=== PATIENT | female | born 1970 | race Caucasian/White ===

== ENCOUNTER 2017-09-19 00:30 | Emergency (ER) | payer MEDICAID, OTHER ==
[2017-09-19] MEDS: SOD CHLORIDE 0.9% 1,000 ML IV (04:19)
[2017-09-19] MEDS: ACETAMINOPHEN 500 MG TAB PO (04:19)
[2017-09-19] MEDS: ONDANSETRON 4 MG INJ IV (04:19)
[2017-09-19] MEDS: morphine 4 MG/ML VIAL IV (04:19)
[2017-09-19 04:21] LABS: ADD MAN DIFF? NO
[2017-09-19 04:23] LABS: BASOPHILS % 0.2 % (0.0-2.0); EOSINOPHILS % 0.2 % (0.0-7.0); HEMATOCRIT 32.6 % (37.0-47.0); HEMOGLOBIN 11.2 g/dl (12.0-16.0); LYMPHOCYTES # 1.1 10^3/ul (0.8-2.9); LYMPHOCYTES % 6.1 % (15.0-51.0); MEAN CORPUSCULAR HEMOGLOBIN 29.2 pg (29.0-33.0); MEAN CORPUSCULAR HGB CONC 34.4 g/dl (32.0-37.0); MEAN CORPUSCULAR VOLUME 84.9 fl (82.0-101.0); MEAN PLATELET VOLUME 9.1 fl (7.4-10.4); MONOCYTE # 1.4 10^3/ul (0.3-0.9); MONOCYTES % 7.6 % (0.0-11.0); NEUTROPHIL # 15.3 10^3/ul (1.6-7.5); NEUTROPHILS % 85.2 % (39.0-77.0); PLATELET COUNT 224 10^3/UL (140-415); RED BLOOD COUNT 3.84 10^6/ul (4.20-5.40); RED CELL DISTRIBUTION WIDTH 12.9 % (11.5-14.5)
[2017-09-19 04:39] LABS: LACTIC ACID 1.4 mmol/L (0.5-2.0)
[2017-09-19 04:40] LABS: ALANINE AMINOTRANSFERASE 23 IU/L (13-69); ALBUMIN 3.7 g/dl (3.3-4.9); ALKALINE PHOSPHATASE 109 IU/L (42-121); ANION GAP 20 (8-16); ASPARTATE AMINO TRANSFERASE 23 IU/L (15-46); BLOOD UREA NITROGEN 14 mg/dl (7-20); CALCIUM 8.8 mg/dl (8.4-10.2); CARBON DIOXIDE 25 mmol/L (21-31); CHLORIDE 101 mmol/L (97-110); CREATININE 0.98 mg/dl (0.44-1.00); GLUCOSE 140 mg/dl (70-220); LIPASE 19 U/L (23-300); POTASSIUM 3.3 mmol/L (3.5-5.1); SODIUM 143 mmol/L (135-144); TOTAL PROTEIN 7.4 g/dl (6.1-8.1)
[2017-09-19 04:56] LABS: ADD UMIC YES; UR ASCORBIC ACID NEGATIVE (NEGATIVE); UR BACTERIA MANY /HPF (NONE SEEN); UR BILIRUBIN (Dip) NEGATIVE (NEGATIVE); UR BLOOD (Dip) 2+ mg/dL (NEGATIVE); UR CLARITY SLIGHTLY CLOUDY (CLEAR); UR COLOR YELLOW (YELLOW); UR GLUCOSE (Dip) NEGATIVE (NEGATIVE); UR KETONES (Dip) NEGATIVE (NEGATIVE); UR LEUKOCYTE ESTERASE (Dip) 1+ Leu/ul (NEGATIVE); UR MUCUS FEW /HPF (NONE SEEN); UR NITRITE (Dip) NEGATIVE (NEGATIVE); UR RBC 3 /HPF (0-5); UR SPECIFIC GRAVITY (Dip) 1.014 (1.003-1.030); UR TOTAL PROTEIN (Dip) 1+ mg/dl (NEGATIVE); UR UROBILINOGEN (Dip) 1+ mg/dL (NEGATIVE); UR WBC 16 /HPF (0-5)
[2017-09-19] MEDS: CIPROFLOXACIN 400MG/D5W 200 ML IVPB (05:40)
== END 2017-09-19 06:39 | disposition home or self-care (01) ==
LOC: FTE 00:30
DX: N10 Acute pyelonephritis (principal)
CPT/HCPCS: 36415; 74176; 80053; 81001; 83605; 83690; 84703; 85025; 87040; 87400; 96374; 96375; 99285-25

== ENCOUNTER 2017-09-22 21:17 | Inpatient (IN) | payer OTHER, MEDICAID ==
[2017-09-23] MEDS: IBUPROFEN LIQUID (PED) 20 MG/ML CUP PO (00:03)
[2017-09-23 01:01] LABS: ABNORMAL IP MESSAGE 1; HEMATOCRIT 30.8 % (37.0-47.0); HEMOGLOBIN 10.8 g/dl (12.0-16.0); MEAN CORPUSCULAR HGB CONC 35.1 g/dl (32.0-37.0); MEAN CORPUSCULAR VOLUME 82.8 fl (82.0-101.0); MEAN PLATELET VOLUME 8.8 fl (7.4-10.4); PLATELET COUNT 263 10^3/UL (140-415); RED BLOOD COUNT 3.72 10^6/ul (4.20-5.40); RED CELL DISTRIBUTION WIDTH 13.8 % (11.5-14.5)
[2017-09-23 01:01] LABS: WHITE BLOOD COUNT 27.3 10^3/ul (4.8-10.8)
[2017-09-23 01:05] LABS: POSITIVE DIFF @See below
[2017-09-23] MEDS: morphine 4 MG/ML VIAL IV (01:07)
[2017-09-23] MEDS: SODIUM CHLORIDE 0.9% 1L BAG IV* (01:07)
[2017-09-23 01:09] LABS: ADD MAN DIFF? YES
[2017-09-23] MEDS: ONDANSETRON 4 MG INJ IV (01:11)
[2017-09-23 01:17] LABS: ALANINE AMINOTRANSFERASE 54 IU/L (13-69); ALBUMIN 3.5 g/dl (3.3-4.9); ALKALINE PHOSPHATASE 326 IU/L (42-121); ANION GAP 20 (8-16); ASPARTATE AMINO TRANSFERASE 59 IU/L (15-46); BLOOD UREA NITROGEN 14 mg/dl (7-20); CALCIUM 8.8 mg/dl (8.4-10.2); CARBON DIOXIDE 26 mmol/L (21-31); CHLORIDE 97 mmol/L (97-110); CREATININE 0.97 mg/dl (0.44-1.00); GLUCOSE 109 mg/dl (70-220); SODIUM 140 mmol/L (135-144); TOTAL PROTEIN 7.3 g/dl (6.1-8.1)
[2017-09-23 01:18] LABS: ALBUMIN/GLOBULIN RATIO 0.92
[2017-09-23 01:22] LABS: URINE PH (Dip) POC 5.5 (5.0-8.5)
[2017-09-23 01:22] LABS: URINE BLOOD (Dip) POC 1+ (NEGATIVE); URINE GLUCOSE (Dip) POC Negative (NEGATIVE); URINE KETONES (Dip) POC Negative (NEGATIVE); URINE LEUKOCYTE EST (Dip) POC Negative (NEGATIVE); URINE NITRITE (Dip) POC Negative (NEGATIVE); URINE TOTAL PROTEIN POC 2+ (NEGATIVE)
[2017-09-23 01:24] LABS: POTASSIUM 2.6 mmol/L (3.5-5.1)
[2017-09-23 01:30] LABS: TROPONIN-I 0.102 ng/ml (0.00-0.12)
[2017-09-23 01:31] LABS: INR 1.33; PROTIME 16.7 Sec (11.9-14.9); PT RATIO 1.3
[2017-09-23 01:32] LABS: PARTIAL THROMBOPLASTIN TIME 33.6 Sec (25.0-35.0)
[2017-09-23] MEDS: IBUPROFEN 600 MG TAB PO (01:40)
[2017-09-23] MEDS: LEVOFLOXACIN 750MG/D5W (PMX) 150 ML IVPB (01:41)
[2017-09-23 01:45] LABS: LACTIC ACID 3.4 mmol/L (0.5-2.0)
[2017-09-23] MEDS ORDERED: VANCOMYCIN IV PER PHARMACY XX (02:00)
[2017-09-23] MEDS ORDERED: NACL 0.9% 3 ML SYG IV (02:00)
[2017-09-23 02:03] LABS: ADD UMIC YES; UR ASCORBIC ACID NEGATIVE (NEGATIVE); UR BACTERIA FEW /HPF (NONE SEEN); UR BILIRUBIN (Dip) NEGATIVE (NEGATIVE); UR BLOOD (Dip) 1+ mg/dL (NEGATIVE); UR CLARITY SLIGHTLY CLOUDY (CLEAR); UR COLOR YELLOW (YELLOW); UR GLUCOSE (Dip) NEGATIVE (NEGATIVE); UR KETONES (Dip) NEGATIVE (NEGATIVE); UR LEUKOCYTE ESTERASE (Dip) TRACE Leu/ul (NEGATIVE); UR NITRITE (Dip) NEGATIVE (NEGATIVE); UR RBC 2 /HPF (0-5); UR SPECIFIC GRAVITY (Dip) 1.014 (1.003-1.030); UR SQUAMOUS EPITHELIAL CELL FEW /HPF (FEW); UR TOTAL PROTEIN (Dip) 2+ mg/dl (NEGATIVE); UR UROBILINOGEN (Dip) 1+ mg/dL (NEGATIVE); UR WBC 11 /HPF (0-5)
[2017-09-23] MEDS: LORAZEPAM 2 MG INJ IV ×5 (02:23→20:43)
[2017-09-23] MEDS: morphine 2 MG INJ IV ×3 (02:24→14:05)
[2017-09-23] MEDS: POTASSIUM CHLORIDE 100 ML IVPB ×2 (02:36→04:29)
[2017-09-23] MEDS: SOD CHLORIDE 0.9% 1,000 ML IV ×3 (02:38→16:44)
[2017-09-23] MEDS: VANCOMYCIN 1 GM (PMX) 250 ML IVPB (02:39)
[2017-09-23 03:11] LABS: BAND NEUTROPHILS % (M) 22 % (0-4); GIANT THROMBO% (M) 1 % (0-0); LYMPHOCYTES #M 0.5 10^3/ul (0.8-2.9); LYMPHOCYTES % (M) 2 % (15-51); METAMYELOCYTES #M 0.5 10^3/ul (0.0-0.0); METAMYELOCYTES %M 2 % (0-0); MONOCYTE #M 0.5 10^3/ul (0.3-0.9); MONOCYTES % (M) 2 % (0-11); PLATELET ESTIMATE NORMAL; POIKILOCYTOSIS 2+ (0-0); PROMYELOCYTES #M 0.2 10^3/ul (0-0); PROMYELOCYTES % (M) 1 % (0-0); REACTIVE LYMPHOCYTES #M 0.2 10^3/ul (0.0-0.0); REACTIVE LYMPHOCYTES% (M) 1 % (0-0); SEG NEUT #M 20.7 10^3/ul (1.6-7.5); SEGMENTED NEUTROPHILS (M) % 70 % (39-77); SMUDGE%M 2 % (0-0)
[2017-09-23 03:21] LABS: LACTIC ACID 3.7 mmol/L (0.5-2.0)
[2017-09-23] MEDS: NICOTINE (14 MG/24 HR) PATCH TRANSDERM (04:08)
[2017-09-23] MEDS: NICOTINE POLACRILEX 2 MG GUM BUCCAL ×2 (04:26→08:55)
[2017-09-23 05:58] LABS: ABNORMAL IP MESSAGE 1; HEMATOCRIT 28.9 % (37.0-47.0); HEMOGLOBIN 10.2 g/dl (12.0-16.0); MEAN CORPUSCULAR HGB CONC 35.3 g/dl (32.0-37.0); MEAN CORPUSCULAR VOLUME 82.1 fl (82.0-101.0); MEAN PLATELET VOLUME 8.9 fl (7.4-10.4); PLATELET COUNT 236 10^3/UL (140-415); RED BLOOD COUNT 3.52 10^6/ul (4.20-5.40); RED CELL DISTRIBUTION WIDTH 13.9 % (11.5-14.5)
[2017-09-23 05:58] LABS: WHITE BLOOD COUNT 25.5 10^3/ul (4.8-10.8)
[2017-09-23 06:24] LABS: POSITIVE DIFF @See below
[2017-09-23 06:25] LABS: ADD MAN DIFF? YES; CHOL/HDL RATIO 7.8 RATIO; HDL CHOLESTEROL 11 mg/dl (34-88); LDL CHOLESTEROL,CALCULATED 52 mg/dl; TRIGLYCERIDES 113 mg/dl (0-149)
[2017-09-23 06:25] LABS: CHOLESTEROL 86 mg/dl (100-200)
[2017-09-23 06:29] LABS: ALANINE AMINOTRANSFERASE 45 IU/L (13-69); ALBUMIN 2.7 g/dl (3.3-4.9); ALBUMIN/GLOBULIN RATIO 0.87; ALKALINE PHOSPHATASE 246 IU/L (42-121); ANION GAP 21 (8-16); ASPARTATE AMINO TRANSFERASE 46 IU/L (15-46); BLOOD UREA NITROGEN 14 mg/dl (7-20); CALCIUM 7.8 mg/dl (8.4-10.2); CARBON DIOXIDE 22 mmol/L (21-31); CHLORIDE 103 mmol/L (97-110); GLUCOSE 127 mg/dl (70-220); SODIUM 143 mmol/L (135-144); TOTAL PROTEIN 5.8 g/dl (6.1-8.1)
[2017-09-23 06:41] LABS: POTASSIUM 2.8 mmol/L (3.5-5.1)
[2017-09-23 06:41] LABS: LACTIC ACID 3.8 mmol/L (0.5-2.0)
[2017-09-23 06:57] LABS: THYROID STIMULATING HORMONE 0.467 MIU/L (0.465-4.680)
[2017-09-23] MEDS: POTASSIUM CHLORIDE (SR) 20 MEQ TAB PO ×2 (07:12→08:49)
[2017-09-23] MEDS: SOD CHLORIDE 0.9% 100 ML (08:43)
[2017-09-23] MEDS: IOHEXOL 300MG/ML 150 ML BTL (08:44)
[2017-09-23] MEDS: HYDROmorphONE 0.5 MG/0.5 ML SYG IV ×2 (08:49→09:06)
[2017-09-23 09:20] LABS: BAND NEUTROPHILS #M 10.4 10^3/ul (0.0-0.6); BAND NEUTROPHILS % (M) 41 % (0-4); LYMPHOCYTES % (M) 4 % (15-51); MONOCYTE #M 0.7 10^3/ul (0.3-0.9); MONOCYTES % (M) 3 % (0-11); PLATELET ESTIMATE NORMAL; POIKILOCYTOSIS 2+ (0-0); POLYCHROMASIA 3+ (0-0); SEG NEUT #M 15.9 10^3/ul (1.6-7.5); SEGMENTED NEUTROPHILS (M) % 52 % (39-77); SMUDGE%M 6 % (0-0)
[2017-09-23 10:47] LABS: AMPHETAMINE/METHAMPHETAMINE Positive (NEGATIVE)
[2017-09-23 10:48] LABS: BARBITURATES Negative (NEGATIVE); BENZODIAZEPINES Negative (NEGATIVE); CANNABINOIDS Negative (NEGATIVE); COCAINE Negative (NEGATIVE); OPIATES Positive (NEGATIVE)
[2017-09-23 10:48] LABS: LACTIC ACID 3.7 mmol/L (0.5-2.0)
[2017-09-23] MEDS ORDERED: HALOPERIDOL 5 MG INJ (12:04)
[2017-09-23] MEDS: VANCOMYCIN 500MG/NS (PMX) 100 ML IVPB ×2 (12:06→21:01)
[2017-09-23] MEDS: HALOPERIDOL 5 MG INJ IM ×2 (12:17→23:17)
[2017-09-23 13:31] LABS: LACTIC ACID 2.9 mmol/L (0.5-2.0)
[2017-09-23] MEDS ORDERED: VANCOMYCIN 500MG/NS (PMX) 100 ML IVPB (14:00)
[2017-09-23 23:37] LABS: HIV 1&2 ANTIBODY NEGATIVE (NEGATIVE)
[2017-09-24] MEDS: SOD CHLORIDE 0.9% 1,000 ML IV ×3 (01:41→16:30)
[2017-09-24] MEDS: LORAZEPAM 2 MG INJ IV ×7 (01:42→23:13)
[2017-09-24] MEDS ORDERED: LEVOFLOXACIN 750MG/D5W (PMX) 150 ML IVPB (02:00)
[2017-09-24] MEDS: VANCOMYCIN 500MG/NS (PMX) 100 ML IVPB (04:22)
[2017-09-24 08:59] LABS: ABNORMAL IP MESSAGE 1; HEMATOCRIT 23.2 % (37.0-47.0); HEMOGLOBIN 8.4 g/dl (12.0-16.0); MEAN CORPUSCULAR HEMOGLOBIN 29.2 pg (29.0-33.0); MEAN CORPUSCULAR HGB CONC 36.2 g/dl (32.0-37.0); MEAN CORPUSCULAR VOLUME 80.6 fl (82.0-101.0); MEAN PLATELET VOLUME 9.2 fl (7.4-10.4); PLATELET COUNT 239 10^3/UL (140-415); RED BLOOD COUNT 2.88 10^6/ul (4.20-5.40); RED CELL DISTRIBUTION WIDTH 14.1 % (11.5-14.5)
[2017-09-24 08:59] LABS: WHITE BLOOD COUNT 41.3 10^3/ul (4.8-10.8)
[2017-09-24] MEDS: RIFAMPIN 300 MG CAP PO (09:00)
[2017-09-24 09:06] LABS: ADD MAN DIFF? YES; POSITIVE DIFF @See below
[2017-09-24 09:21] LABS: ANION GAP 20 (8-16); BLOOD UREA NITROGEN 24 mg/dl (7-20); CALCIUM 8.1 mg/dl (8.4-10.2); CARBON DIOXIDE 20 mmol/L (21-31); CHLORIDE 110 mmol/L (97-110); CREATININE 0.86 mg/dl (0.44-1.00); GLUCOSE 89 mg/dl (70-220); MAGNESIUM 2.5 mg/dl (1.7-2.5); SODIUM 147 mmol/L (135-144)
[2017-09-24 09:24] LABS: POTASSIUM 2.7 mmol/L (3.5-5.1)
[2017-09-24 10:02] LABS: HEPATITIS B CORE ANTIBODY REACTIVE (NEGATIVE)
[2017-09-24 10:02] LABS: HEPATITIS B SURFACE ANTIBODY NEGATIVE (NEGATIVE)
[2017-09-24 10:05] LABS: HEPATITIS C VIRAL ANTIBODY REACTIVE (NEGATIVE)
[2017-09-24 10:06] LABS: HEPATITIS B SURFACE ANTIGEN POSITIVE (NEGATIVE)
[2017-09-24 10:21] LABS: BAND NEUTROPHILS #M 8.6 10^3/ul (0.0-0.6); BAND NEUTROPHILS % (M) 21 % (0-4); BURR CELLS 2+ (0-0); LYMPHOCYTES #M 1.2 10^3/ul (0.8-2.9); LYMPHOCYTES % (M) 3 % (15-51); MONOCYTE #M 0.4 10^3/ul (0.3-0.9); MONOCYTES % (M) 1 % (0-11); PLATELET ESTIMATE NORMAL; POIKILOCYTOSIS 1+ (0-0); POLYCHROMASIA 2+ (0-0); REACTIVE LYMPHOCYTES #M 0.4 10^3/ul (0.0-0.0); REACTIVE LYMPHOCYTES% (M) 1 % (0-0); SEG NEUT #M 34.1 10^3/ul (1.6-7.5); SEGMENTED NEUTROPHILS (M) % 74 % (39-77); SMUDGE%M 1 % (0-0); TARGET CELLS 1+ (0-0)
[2017-09-24 11:12] LABS: ERYTHROCYTE SEDIMENTATION RATE 102 mm/Hr (0-20)
[2017-09-24] MEDS: VANCOMYCIN 750 MG in DEXTROSE 5% 150 ML IVPB ×2 (11:33→23:28)
[2017-09-24] MEDS: NICOTINE (14 MG/24 HR) PATCH TRANSDERM (11:41)
[2017-09-24] MEDS: POTASSIUM CHLORIDE 100 ML IVPB ×4 (13:56→21:08)
[2017-09-24] MEDS: ACETAMINOPHEN 650 MG SUPP PR (18:12)
[2017-09-24] MEDS: HALOPERIDOL 5 MG INJ IM (23:13)
[2017-09-25] MEDS: METOPROLOL 5 MG INJ IV (00:45)
[2017-09-25] MEDS: SOD CHLORIDE 0.9% 1,000 ML IV ×6 (01:59→22:26)
[2017-09-25] MEDS: LORAZEPAM 2 MG INJ IV (04:24)
[2017-09-25] MEDS: AZTREONAM IVPB (05:01)
[2017-09-25] MEDS: SOD CHLORIDE 0.9% IVPB (05:01)
[2017-09-25] MEDS: DILTIAZEM 25 MG INJ IV ×2 (05:04→06:34)
[2017-09-25] MEDS: VANCOMYCIN 750 MG in DEXTROSE 5% 150 ML IVPB ×4 (05:04→22:26)
[2017-09-25] MEDS: SOD CHLORIDE 0.9% 500 ML IV (05:09)
[2017-09-25 05:20] LABS: AADO2 Arterial 125.3 mmHg (7.0-24.0); Allen Test ACCEPTAB; Arterial Base Excess -7.7 mmol/L (-3.0-3); Arterial Blood Gas Oxygen Sat 87.3 mmHG (95.0-98.0); Arterial COHb 0.3 % (0.0-3.0); Arterial HCO3 13.7 mmol/L (22.0-26.0); Arterial MetHb 0 % (0.0-1.5); Arterial Total Hemglobin 10.3 g/dl (12.0-18.0); Arterial pCO2 18.2 mmhg (35-45); MODE NASAL CANNULA; Site Right Radial
[2017-09-25] MEDS: ETOMIDATE 20 MG INJ IV (06:15)
[2017-09-25] MEDS: ROCURONIUM BROMIDE 10 MG/ML VIAL IV (06:17)
[2017-09-25] MEDS ORDERED: DILTIAZEM 25 MG INJ IV (06:30)
[2017-09-25] MEDS: MIDAZOLAM (DRIP) 50 mg/50 mL 50 ML IV (06:35)
[2017-09-25] MEDS ORDERED: ETOMIDATE 20 MG INJ (07:00)
[2017-09-25] MEDS ORDERED: ROCURONIUM 50 MG INJ (07:00)
[2017-09-25 07:55] LABS: WHITE BLOOD COUNT 21.6 10^3/ul (4.8-10.8)
[2017-09-25 07:55] LABS: HEMATOCRIT 27.2 % (37.0-47.0); HEMOGLOBIN 9.1 g/dl (12.0-16.0); MEAN CORPUSCULAR HEMOGLOBIN 28.6 pg (29.0-33.0); MEAN CORPUSCULAR HGB CONC 33.5 g/dl (32.0-37.0); MEAN CORPUSCULAR VOLUME 85.5 fl (82.0-101.0); MEAN PLATELET VOLUME 9.3 fl (7.4-10.4); PLATELET COUNT 165 10^3/UL (140-415); RED BLOOD COUNT 3.18 10^6/ul (4.20-5.40); RED CELL DISTRIBUTION WIDTH 15.1 % (11.5-14.5)
[2017-09-25 08:03] LABS: ADD MAN DIFF? YES; POSITIVE DIFF @See below
[2017-09-25 08:11] LABS: AADO2 Arterial 408.2 mmHg (7.0-24.0); Allen Test ACCEPTAB; Arterial Base Excess -6.8 mmol/L (-3.0-3); Arterial Blood Gas Oxygen Sat 98.7 mmHG (95.0-98.0); Arterial COHb 0.3 % (0.0-3.0); Arterial MetHb 0.4 % (0.0-1.5); Arterial Total Hemglobin 9.5 g/dl (12.0-18.0); Arterial pCO2 62.6 mmhg (35-45); MODE VENT - AC; Site Right Radial
[2017-09-25 08:15] LABS: MAGNESIUM 2.5 mg/dl (1.7-2.5)
[2017-09-25 08:17] LABS: ALANINE AMINOTRANSFERASE 46 IU/L (13-69); ALBUMIN 2.5 g/dl (3.3-4.9); ALBUMIN/GLOBULIN RATIO 0.75; ALKALINE PHOSPHATASE 223 IU/L (42-121); ANION GAP 23 (8-16); ASPARTATE AMINO TRANSFERASE 77 IU/L (15-46); BILIRUBIN,INDIRECT 0.5 mg/dl (0-1.1); BILIRUBIN,TOTAL 0.7 mg/dl (0.2-1.3); BLOOD UREA NITROGEN 37 mg/dl (7-20); CALCIUM 7.5 mg/dl (8.4-10.2); CARBON DIOXIDE 17 mmol/L (21-31); CHLORIDE 118 mmol/L (97-110); CREATININE 0.99 mg/dl (0.44-1.00); GLUCOSE 104 mg/dl (70-220); POTASSIUM 3.7 mmol/L (3.5-5.1); SODIUM 154 mmol/L (135-144); TOTAL PROTEIN 5.8 g/dl (6.1-8.1)
[2017-09-25 08:28] LABS: GAMMA GLUTAMYL TRANSPEPTIDASE 66 IU/L (0-50)
[2017-09-25] MEDS: RIFAMPIN 300 MG CAP PO (08:29)
[2017-09-25] MEDS ORDERED: AZTREONAM 2 GM in SOD CHLORIDE 0.9% 100 ML IVPB (09:00)
[2017-09-25 09:46] LABS: ANISOCYTOSIS 1+ (0-0); BAND NEUTROPHILS #M 1.9 10^3/ul (0.0-0.6); BAND NEUTROPHILS % (M) 9 % (0-4); GIANT THROMBO% (M) 1 % (0-0); LYMPHOCYTES #M 1.2 10^3/ul (0.8-2.9); LYMPHOCYTES % (M) 6 % (15-51); MONOCYTE #M 0.4 10^3/ul (0.3-0.9); MONOCYTES % (M) 2 % (0-11); MYELOCYTES #M 0.2 10^3/ul (0.0-0.0); MYELOCYTES % (M) 1 % (0-0); PLATELET ESTIMATE NORMAL; POIKILOCYTOSIS 3+ (0-0); PROMYELOCYTES #M 0.2 10^3/ul (0-0); PROMYELOCYTES % (M) 1 % (0-0); REACTIVE LYMPHOCYTES #M 0.2 10^3/ul (0.0-0.0); REACTIVE LYMPHOCYTES% (M) 1 % (0-0); SEG NEUT #M 17.7 10^3/ul (1.6-7.5); SEGMENTED NEUTROPHILS (M) % 80 % (39-77); SMUDGE%M 2 % (0-0)
[2017-09-25] MEDS ORDERED: PROPOFOL 100 ML (10:45)
[2017-09-25] MEDS: PROPOFOL 100 ML IV ×2 (10:53→17:37)
[2017-09-25] MEDS ORDERED: NORepinephrine 8MG/250 ML (PMX 250 ML IV (11:00)
[2017-09-25 11:15] LABS: AMMONIA 46 umol/l (9-30)
[2017-09-25] MEDS: RIFAMPIN 300 MG CAP NGT (11:53)
[2017-09-25] MEDS: MEROPENEM 1 GM/50ML(PMX) 50 ML IVPB ×3 (11:53→22:27)
[2017-09-25 12:13] LABS: AADO2 Arterial 138.8 mmHg (7.0-24.0); Allen Test ACCEPTAB; Arterial Base Excess -6.2 mmol/L (-3.0-3); Arterial Blood Gas Oxygen Sat 98.4 mmHG (95.0-98.0); Arterial COHb 0.2 % (0.0-3.0); Arterial HCO3 17.2 mmol/L (22.0-26.0); Arterial MetHb 0.2 % (0.0-1.5); Arterial Total Hemglobin 9.5 g/dl (12.0-18.0); Arterial pCO2 26.8 mmhg (35-45); MODE VENT - AC; Site Right Radial
[2017-09-25] MEDS: morphine 2 MG INJ IV (13:22)
[2017-09-25] MEDS: NICOTINE (14 MG/24 HR) PATCH TRANSDERM (13:22)
[2017-09-25 14:24] LABS: HEPATITIS B SURFACE ANTIGEN REACTIVE (NON-REACTIVE)
[2017-09-25] MEDS: LIDOCAINE 1% (MPF) 5 ML VIAL SC (14:30)
[2017-09-25] MEDS: SOD CHLORIDE 0.9% 100 ML ×2 (15:05→17:37)
[2017-09-25] MEDS: IOHEXOL 100 ML (16:12)
[2017-09-25] MEDS: FENTAnyl (DRIP) 1000 mcg/100mL 100 ML IV (17:39)
[2017-09-25 21:39] LABS: RAPID PLASMA REAGIN NONREACTIVE (NR)
[2017-09-26] MEDS: PROPOFOL 100 ML IV ×4 (01:10→22:26)
[2017-09-26 05:45] LABS: HEMATOCRIT 26.1 % (37.0-47.0); HEMOGLOBIN 9.1 g/dl (12.0-16.0); MEAN CORPUSCULAR HEMOGLOBIN 28.7 pg (29.0-33.0); MEAN CORPUSCULAR HGB CONC 34.9 g/dl (32.0-37.0); MEAN CORPUSCULAR VOLUME 82.3 fl (82.0-101.0); MEAN PLATELET VOLUME 9.3 fl (7.4-10.4); PLATELET COUNT 163 10^3/UL (140-415); RED BLOOD COUNT 3.17 10^6/ul (4.20-5.40)
[2017-09-26 05:45] LABS: WHITE BLOOD COUNT 22.9 10^3/ul (4.8-10.8)
[2017-09-26 05:58] LABS: ADD MAN DIFF? YES; POSITIVE DIFF @See below
[2017-09-26] MEDS: VANCOMYCIN 750 MG in DEXTROSE 5% 150 ML IVPB (05:59)
[2017-09-26] MEDS: MEROPENEM 1 GM/50ML(PMX) 50 ML IVPB ×3 (05:59→22:26)
[2017-09-26 06:30] LABS: ALANINE AMINOTRANSFERASE 44 IU/L (13-69); ALBUMIN 2.4 g/dl (3.3-4.9); ALKALINE PHOSPHATASE 216 IU/L (42-121); ANION GAP 15 (8-16); ASPARTATE AMINO TRANSFERASE 65 IU/L (15-46); BILIRUBIN,INDIRECT 0.6 mg/dl (0-1.1); BILIRUBIN,TOTAL 1.1 mg/dl (0.2-1.3); BLOOD UREA NITROGEN 23 mg/dl (7-20); CALCIUM 7.4 mg/dl (8.4-10.2); CARBON DIOXIDE 21 mmol/L (21-31); CHLORIDE 118 mmol/L (97-110); CREATININE 0.75 mg/dl (0.44-1.00); GLUCOSE 92 mg/dl (70-220); POTASSIUM 3.1 mmol/L (3.5-5.1); SODIUM 151 mmol/L (135-144); TOTAL PROTEIN 5.8 g/dl (6.1-8.1)
[2017-09-26] MEDS: FENTAnyl (DRIP) 1000 mcg/100mL 100 ML IV ×2 (07:08→16:00)
[2017-09-26] MEDS: DEXTROSE 5% 1,000 ML IV ×2 (07:48→22:26)
[2017-09-26 08:38] LABS: AADO2 Arterial 106.9 mmHg (7.0-24.0); Allen Test ACCEPTAB; Arterial Base Excess -1.6 mmol/L (-3.0-3); Arterial Blood Gas Oxygen Sat 97.8 mmHG (95.0-98.0); Arterial COHb 0.2 % (0.0-3.0); Arterial Fraction of Oxyhgb 97.5 % (93.0-99.0); Arterial HCO3 20.5 mmol/L (22.0-26.0); Arterial MetHb 0.1 % (0.0-1.5); Arterial Total Hemglobin 10.1 g/dl (12.0-18.0); Arterial pCO2 26.1 mmhg (35-45); MODE VENT - AC; Site Right Radial
[2017-09-26] MEDS: RIFAMPIN 300 MG CAP NGT (08:43)
[2017-09-26] MEDS: NICOTINE (14 MG/24 HR) PATCH TRANSDERM (08:43)
[2017-09-26] MEDS: POTASSIUM CHLORIDE 50 ML IVPB ×3 (08:43→15:35)
[2017-09-26] MEDS: ACETAMINOPHEN 325 MG TAB PO ×2 (08:44→18:41)
[2017-09-26 09:33] LABS: ANISOCYTOSIS 1+ (0-0); BAND NEUTROPHILS #M 1.6 10^3/ul (0.0-0.6); BAND NEUTROPHILS % (M) 7 % (0-4); GIANT THROMBO% (M) 2 % (0-0); HYPOCHROMASIA 1+ (0-0); LYMPHOCYTES #M 1.6 10^3/ul (0.8-2.9); LYMPHOCYTES % (M) 7 % (15-51); MONOCYTE #M 0.9 10^3/ul (0.3-0.9); MONOCYTES % (M) 4 % (0-11); PLATELET ESTIMATE NORMAL; POIKILOCYTOSIS 1+ (0-0); POLYCHROMASIA 3+ (0-0); SEG NEUT #M 19.1 10^3/ul (1.6-7.5); SEGMENTED NEUTROPHILS (M) % 82 % (39-77)
[2017-09-26] MEDS ORDERED: LORAZEPAM 2 MG INJ (10:23)
[2017-09-26] MEDS: LORAZEPAM 2 MG INJ IV ×3 (11:04→16:34)
[2017-09-26] MEDS: PANTOPRAZOLE 40 MG INJ IV (11:04)
[2017-09-26] MEDS: ENOXAPARIN 40 MG/0.4 ML SYG SC (11:08)
[2017-09-26] MEDS: VANCOMYCIN 1 GM 250 ML IVPB ×2 (13:27→22:26)
[2017-09-26 13:56] LABS: ANION GAP 12 (8-16); BLOOD UREA NITROGEN 22 mg/dl (7-20); CALCIUM 7.1 mg/dl (8.4-10.2); CARBON DIOXIDE 24 mmol/L (21-31); CHLORIDE 116 mmol/L (97-110); CREATININE 0.74 mg/dl (0.44-1.00); GLUCOSE 101 mg/dl (70-220); MAGNESIUM 2.4 mg/dl (1.7-2.5); PHOSPHORUS 2.4 mg/dl (2.5-4.9); POTASSIUM 3.4 mmol/L (3.5-5.1); SODIUM 149 mmol/L (135-144)
[2017-09-27] MEDS: ACETAMINOPHEN 325 MG TAB PO ×2 (03:16→20:30)
[2017-09-27] MEDS: FENTAnyl (DRIP) 1000 mcg/100mL 100 ML IV ×3 (03:19→17:21)
[2017-09-27 05:44] LABS: ADD MAN DIFF? NO
[2017-09-27 05:54] LABS: WHITE BLOOD COUNT 22.7 10^3/ul (4.8-10.8)
[2017-09-27 05:54] LABS: BASOPHILS % 0.2 % (0.0-2.0); EOSINOPHILS # 0.1 10^3/ul (0.0-0.5); EOSINOPHILS % 0.2 % (0.0-7.0); HEMATOCRIT 24.9 % (37.0-47.0); HEMOGLOBIN 8.6 g/dl (12.0-16.0); LYMPHOCYTES # 2.1 10^3/ul (0.8-2.9); MEAN CORPUSCULAR HGB CONC 34.5 g/dl (32.0-37.0); MEAN CORPUSCULAR VOLUME 83.8 fl (82.0-101.0); MEAN PLATELET VOLUME 10.8 fl (7.4-10.4); MONOCYTE # 0.8 10^3/ul (0.3-0.9); MONOCYTES % 3.6 % (0.0-11.0); NEUTROPHIL # 18.8 10^3/ul (1.6-7.5); NEUTROPHILS % 82.9 % (39.0-77.0); PLATELET COUNT 140 10^3/UL (140-415); RED BLOOD COUNT 2.97 10^6/ul (4.20-5.40); RED CELL DISTRIBUTION WIDTH 15.4 % (11.5-14.5)
[2017-09-27 06:05] LABS: ALANINE AMINOTRANSFERASE 76 IU/L (13-69); ALBUMIN 2.1 g/dl (3.3-4.9); ALBUMIN/GLOBULIN RATIO 0.56; ALKALINE PHOSPHATASE 245 IU/L (42-121); ANION GAP 10 (8-16); ASPARTATE AMINO TRANSFERASE 133 IU/L (15-46); BILIRUBIN,INDIRECT 0.8 mg/dl (0-1.1); BILIRUBIN,TOTAL 0.8 mg/dl (0.2-1.3); BLOOD UREA NITROGEN 19 mg/dl (7-20); CARBON DIOXIDE 23 mmol/L (21-31); CHLORIDE 116 mmol/L (97-110); CREATININE 0.67 mg/dl (0.44-1.00); GLUCOSE 127 mg/dl (70-220); MAGNESIUM 2.2 mg/dl (1.7-2.5); PHOSPHORUS 2.8 mg/dl (2.5-4.9); POTASSIUM 3.4 mmol/L (3.5-5.1); SODIUM 146 mmol/L (135-144); TOTAL PROTEIN 5.8 g/dl (6.1-8.1)
[2017-09-27] MEDS: PANTOPRAZOLE 40 MG INJ IV (06:26)
[2017-09-27] MEDS: MEROPENEM 1 GM/50ML(PMX) 50 ML IVPB ×3 (06:26→22:30)
[2017-09-27] MEDS: PROPOFOL 100 ML IV ×2 (06:26→23:47)
[2017-09-27] MEDS: VANCOMYCIN 1 GM 250 ML IVPB ×2 (06:26→14:16)
[2017-09-27] MEDS: NICOTINE (14 MG/24 HR) PATCH TRANSDERM (08:29)
[2017-09-27] MEDS: RIFAMPIN 300 MG CAP NGT (08:30)
[2017-09-27 08:36] LABS: Allen Test ACCEPTAB; Arterial Base Excess -1.1 mmol/L (-3.0-3); Arterial Blood Gas Oxygen Sat 97.9 mmHG (95.0-98.0); Arterial COHb 0.3 % (0.0-3.0); Arterial Fraction of Oxyhgb 97.6 % (93.0-99.0); Arterial HCO3 21.8 mmol/L (22.0-26.0); Arterial MetHb 0 % (0.0-1.5); Arterial pCO2 29.9 mmhg (35-45); MODE VENT - AC; Site Right Radial
[2017-09-27] MEDS: ENOXAPARIN 40 MG/0.4 ML SYG SC (08:46)
[2017-09-27] MEDS ORDERED: MAGNESIUM SULFATE 2 GM/50 ML 50 ML IVPB (09:00)
[2017-09-27] MEDS ORDERED: MAGNESIUM SULFATE 4 GM/100 ML 100 ML IVPB (09:00)
[2017-09-27] MEDS ORDERED: MAGNESIUM SULFATE 1 GM/D5W 100 ML IVPB (09:00)
[2017-09-27] MEDS: DAPTOMYCIN 320 MG in SOD CHLORIDE 0.9% 100 ML IVPB (09:31)
[2017-09-27] MEDS: POTASSIUM CHLORIDE 100 ML IVPB (09:37)
[2017-09-27] MEDS: DEXTROSE 5% 1,000 ML IV ×2 (13:10→20:30)
[2017-09-27 14:05] LABS: VANCOMYCIN,TROUGH 14.3 ug/ml (10.0-20.0)
[2017-09-27] MEDS: POTASSIUM CHLORIDE 50 ML IVPB (18:35)
[2017-09-27] MEDS: IBUPROFEN 600 MG TAB GTB (23:47)
[2017-09-27] MEDS: SOD CHLORIDE 0.9% IVPB (23:47)
[2017-09-27] MEDS: VANCOMYCIN IVPB (23:47)
[2017-09-28] MEDS: SOD CHLORIDE 0.9% 1,000 ML IV ×2 (00:45→06:03)
[2017-09-28] MEDS: FENTAnyl (DRIP) 1000 mcg/100mL 100 ML IV ×3 (02:30→21:30)
[2017-09-28] MEDS: ALBUMIN HUMAN 5% 250 ML IV (04:26)
[2017-09-28 05:08] LABS: ADD MAN DIFF? NO
[2017-09-28 05:09] LABS: BASOPHILS % 0.2 % (0.0-2.0); EOSINOPHILS # 0.2 10^3/ul (0.0-0.5); EOSINOPHILS % 1.2 % (0.0-7.0); HEMATOCRIT 21.7 % (37.0-47.0); HEMOGLOBIN 7.1 g/dl (12.0-16.0); LYMPHOCYTES # 2.4 10^3/ul (0.8-2.9); LYMPHOCYTES % 13.6 % (15.0-51.0); MEAN CORPUSCULAR HEMOGLOBIN 28.2 pg (29.0-33.0); MEAN CORPUSCULAR HGB CONC 32.7 g/dl (32.0-37.0); MEAN CORPUSCULAR VOLUME 86.1 fl (82.0-101.0); MONOCYTE # 0.6 10^3/ul (0.3-0.9); MONOCYTES % 3.2 % (0.0-11.0); NEUTROPHIL # 13.8 10^3/ul (1.6-7.5); NEUTROPHILS % 77.2 % (39.0-77.0); PLATELET COUNT 147 10^3/UL (140-415); RED BLOOD COUNT 2.52 10^6/ul (4.20-5.40); RED CELL DISTRIBUTION WIDTH 15.6 % (11.5-14.5)
[2017-09-28 05:09] LABS: WHITE BLOOD COUNT 17.9 10^3/ul (4.8-10.8)
[2017-09-28 05:31] LABS: CREATINE KINASE 127 IU/L (23-200)
[2017-09-28 05:45] LABS: ALANINE AMINOTRANSFERASE 47 IU/L (13-69); ALBUMIN 1.8 g/dl (3.3-4.9); ALBUMIN/GLOBULIN RATIO 0.48; ALKALINE PHOSPHATASE 159 IU/L (42-121); ANION GAP 8 (8-16); ASPARTATE AMINO TRANSFERASE 39 IU/L (15-46); BILIRUBIN,INDIRECT 0.2 mg/dl (0-1.1); BILIRUBIN,TOTAL 0.2 mg/dl (0.2-1.3); BLOOD UREA NITROGEN 15 mg/dl (7-20); CALCIUM 6.5 mg/dl (8.4-10.2); CARBON DIOXIDE 25 mmol/L (21-31); CHLORIDE 113 mmol/L (97-110); GLUCOSE 117 mg/dl (70-220); POTASSIUM 3.4 mmol/L (3.5-5.1); SODIUM 143 mmol/L (135-144); TOTAL PROTEIN 5.5 g/dl (6.1-8.1)
[2017-09-28] MEDS: MEROPENEM 1 GM/50ML(PMX) 50 ML IVPB (06:02)
[2017-09-28] MEDS: SOD CHLORIDE 0.9% IVPB ×3 (06:02→21:27)
[2017-09-28] MEDS: VANCOMYCIN IVPB ×3 (06:02→21:27)
[2017-09-28] MEDS: PROPOFOL 100 ML IV ×4 (06:02→21:28)
[2017-09-28] MEDS: PANTOPRAZOLE 40 MG INJ IV (06:12)
[2017-09-28] MEDS: DAPTOMYCIN 320 MG in SOD CHLORIDE 0.9% 100 ML IVPB (08:31)
[2017-09-28] MEDS: RIFAMPIN 300 MG CAP NGT (08:31)
[2017-09-28] MEDS: IBUPROFEN 600 MG TAB GTB ×2 (08:32→16:22)
[2017-09-28] MEDS: NICOTINE (14 MG/24 HR) PATCH TRANSDERM (08:32)
[2017-09-28] MEDS: ENOXAPARIN 40 MG/0.4 ML SYG SC (08:50)
[2017-09-28 10:14] LABS: POSITIVE DIFF @See below
[2017-09-28] MEDS: POTASSIUM CHLORIDE 20 MEQ /SW 100 ML IVPB (10:52)
[2017-09-28 11:02] LABS: WHITE BLOOD COUNT 18.1 10^3/ul (4.8-10.8)
[2017-09-28 11:02] LABS: HEMATOCRIT 21.4 % (37.0-47.0); HEMOGLOBIN 7.2 g/dl (12.0-16.0); MEAN CORPUSCULAR HEMOGLOBIN 28.9 pg (29.0-33.0); MEAN CORPUSCULAR HGB CONC 33.6 g/dl (32.0-37.0); MEAN CORPUSCULAR VOLUME 85.9 fl (82.0-101.0); MEAN PLATELET VOLUME 10.9 fl (7.4-10.4); PLATELET COUNT 169 10^3/UL (140-415); RED BLOOD COUNT 2.49 10^6/ul (4.20-5.40); RED CELL DISTRIBUTION WIDTH 15.7 % (11.5-14.5)
[2017-09-28 11:03] LABS: ADD MAN DIFF? YES; NUCLEATED RED BLOOD CELLS% 0.1 /100WBC (0.0-0.0)
[2017-09-28 12:10] LABS: ANISOCYTOSIS 1+ (0-0); BAND NEUTROPHILS #M 0.3 10^3/ul (0.0-0.6); BAND NEUTROPHILS % (M) 2 % (0-4); BASOPHIL #M 0.1 10^3/ul (0.0-0.0); BASOPHILS % (M) 1 % (0-2); EOSINOPHILS % (M) 3 % (0-7); GIANT THROMBO% (M) 1 % (0-0); HYPOCHROMASIA 1+ (0-0); LYMPHOCYTES #M 1.6 10^3/ul (0.8-2.9); LYMPHOCYTES % (M) 9 % (15-51); MONOCYTE #M 0.3 10^3/ul (0.3-0.9); MONOCYTES % (M) 2 % (0-11); POLYCHROMASIA 1+ (0-0); SEG NEUT #M 15.1 10^3/ul (1.6-7.5); SEGMENTED NEUTROPHILS (M) % 83 % (39-77); SMUDGE%M 7 % (0-0)
[2017-09-28] MEDS: DEXTROSE 5% 1,000 ML IV (17:12)
[2017-09-29] MEDS: PROPOFOL 100 ML IV ×3 (04:17→20:00)
[2017-09-29 06:16] LABS: ADD MAN DIFF? NO
[2017-09-29 06:21] LABS: BASOPHILS % 0.2 % (0.0-2.0); EOSINOPHILS # 0.1 10^3/ul (0.0-0.5); EOSINOPHILS % 0.6 % (0.0-7.0); HEMOGLOBIN 7.8 g/dl (12.0-16.0); LYMPHOCYTES # 2.1 10^3/ul (0.8-2.9); LYMPHOCYTES % 9.1 % (15.0-51.0); MEAN CORPUSCULAR HEMOGLOBIN 28.8 pg (29.0-33.0); MEAN CORPUSCULAR HGB CONC 33.9 g/dl (32.0-37.0); MEAN CORPUSCULAR VOLUME 84.9 fl (82.0-101.0); MEAN PLATELET VOLUME 11.4 fl (7.4-10.4); MONOCYTE # 0.5 10^3/ul (0.3-0.9); MONOCYTES % 2.1 % (0.0-11.0); NEUTROPHIL # 19.2 10^3/ul (1.6-7.5); NEUTROPHILS % 83.5 % (39.0-77.0); PLATELET COUNT 270 10^3/UL (140-415); RED BLOOD COUNT 2.71 10^6/ul (4.20-5.40); RED CELL DISTRIBUTION WIDTH 15.4 % (11.5-14.5)
[2017-09-29] MEDS: VANCOMYCIN IVPB ×2 (06:25→13:17)
[2017-09-29] MEDS: SOD CHLORIDE 0.9% IVPB ×2 (06:25→13:17)
[2017-09-29] MEDS: PANTOPRAZOLE 40 MG INJ IV (06:25)
[2017-09-29 06:26] LABS: POSITIVE DIFF @See below
[2017-09-29 06:47] LABS: VANCOMYCIN,TROUGH 12.2 ug/ml (10.0-20.0)
[2017-09-29 06:54] LABS: PHOSPHORUS 2.5 mg/dl (2.5-4.9)
[2017-09-29 06:54] LABS: MAGNESIUM 1.9 mg/dl (1.7-2.5)
[2017-09-29 07:07] LABS: ANION GAP 12 (8-16); BLOOD UREA NITROGEN 11 mg/dl (7-20); CALCIUM 6.6 mg/dl (8.4-10.2); CARBON DIOXIDE 22 mmol/L (21-31); CHLORIDE 108 mmol/L (97-110); GLUCOSE 120 mg/dl (70-220); POTASSIUM 3.8 mmol/L (3.5-5.1); SODIUM 138 mmol/L (135-144)
[2017-09-29] MEDS: LORAZEPAM 2 MG INJ IV ×4 (08:09→22:36)
[2017-09-29] MEDS: NICOTINE (14 MG/24 HR) PATCH TRANSDERM (08:09)
[2017-09-29] MEDS: RIFAMPIN 300 MG CAP NGT (08:10)
[2017-09-29] MEDS: ENOXAPARIN 40 MG/0.4 ML SYG SC (08:14)
[2017-09-29] MEDS: ACETAMINOPHEN 325 MG TAB PO (08:53)
[2017-09-29] MEDS: DAPTOMYCIN 320 MG in SOD CHLORIDE 0.9% 100 ML IVPB (09:49)
[2017-09-29] MEDS: FENTAnyl (DRIP) 1000 mcg/100mL 100 ML IV (10:37)
[2017-09-29] MEDS ORDERED: DAPTOMYCIN 500 MG in SOD CHLORIDE 0.9% 100 ML IVPB (12:12)
[2017-09-30] MEDS: VANCOMYCIN 750 MG in DEXTROSE 5% 150 ML IVPB ×3 (00:59→11:45)
[2017-09-30] MEDS ORDERED: PHENYLephrine 20MG IN 250 ML 250 ML IV (01:00)
[2017-09-30] MEDS: SOD CHLORIDE 0.9% 1,000 ML IV (01:06)
[2017-09-30] MEDS ORDERED: PHENYLephrine 40 MG in DEXTROSE 5% 496 ML IV (02:00)
[2017-09-30 06:00] LABS: ADD MAN DIFF? NO
[2017-09-30 06:01] LABS: ABNORMAL IP MESSAGE 1; BASOPHILS % 0.1 % (0.0-2.0); EOSINOPHILS # 0.1 10^3/ul (0.0-0.5); EOSINOPHILS % 0.5 % (0.0-7.0); HEMATOCRIT 19.6 % (37.0-47.0); LYMPHOCYTES # 1.5 10^3/ul (0.8-2.9); LYMPHOCYTES % 7.9 % (15.0-51.0); MEAN CORPUSCULAR HEMOGLOBIN 29.3 pg (29.0-33.0); MEAN CORPUSCULAR HGB CONC 34.2 g/dl (32.0-37.0); MEAN CORPUSCULAR VOLUME 85.6 fl (82.0-101.0); MEAN PLATELET VOLUME 10.6 fl (7.4-10.4); MONOCYTE # 0.5 10^3/ul (0.3-0.9); MONOCYTES % 2.6 % (0.0-11.0); NEUTROPHIL # 16.8 10^3/ul (1.6-7.5); NEUTROPHILS % 86.8 % (39.0-77.0); PLATELET COUNT 344 10^3/UL (140-415); RED BLOOD COUNT 2.29 10^6/ul (4.20-5.40); RED CELL DISTRIBUTION WIDTH 15.2 % (11.5-14.5)
[2017-09-30 06:01] LABS: WHITE BLOOD COUNT 19.4 10^3/ul (4.8-10.8)
[2017-09-30] MEDS: PROPOFOL 100 ML IV ×2 (06:06→16:28)
[2017-09-30] MEDS: PANTOPRAZOLE 40 MG INJ IV (06:06)
[2017-09-30 06:30] LABS: ALANINE AMINOTRANSFERASE 22 IU/L (13-69); ALBUMIN 2.1 g/dl (3.3-4.9); ALBUMIN/GLOBULIN RATIO 0.51; ALKALINE PHOSPHATASE 125 IU/L (42-121); ANION GAP 13 (8-16); ASPARTATE AMINO TRANSFERASE 26 IU/L (15-46); BILIRUBIN,INDIRECT 0.1 mg/dl (0-1.1); BILIRUBIN,TOTAL 0.1 mg/dl (0.2-1.3); BLOOD UREA NITROGEN 13 mg/dl (7-20); CALCIUM 6.9 mg/dl (8.4-10.2); CARBON DIOXIDE 23 mmol/L (21-31); CHLORIDE 106 mmol/L (97-110); CREATININE 0.54 mg/dl (0.44-1.00); GLUCOSE 122 mg/dl (70-220); POTASSIUM 3.8 mmol/L (3.5-5.1); SODIUM 138 mmol/L (135-144); TOTAL PROTEIN 6.2 g/dl (6.1-8.1)
[2017-09-30 06:33] LABS: HEMOGLOBIN 6.7 g/dl (12.0-16.0); PATH REVIEW? YES; POSITIVE DIFF @See below
[2017-09-30] MEDS: FENTAnyl (DRIP) 1000 mcg/100mL 100 ML IV (06:41)
[2017-09-30] MEDS: DAPTOMYCIN 500 MG in SOD CHLORIDE 0.9% 100 ML IVPB (07:51)
[2017-09-30] MEDS: RIFAMPIN 300 MG CAP NGT (08:00)
[2017-09-30] MEDS: NICOTINE (14 MG/24 HR) PATCH TRANSDERM (08:02)
[2017-09-30] MEDS: ENOXAPARIN 40 MG/0.4 ML SYG SC (08:06)
[2017-09-30] MEDS: LORAZEPAM 2 MG INJ IV ×2 (08:50→13:47)
[2017-09-30 09:30] LABS: BAND NEUTROPHILS #M 0.1 10^3/ul (0.0-0.6); BAND NEUTROPHILS % (M) 1 % (0-4); EOSINOPHILS % (M) 2 % (0-7); GIANT THROMBO% (M) 1 % (0-0); LYMPHOCYTES #M 0.9 10^3/ul (0.8-2.9); LYMPHOCYTES % (M) 5 % (15-51); PLATELET ESTIMATE NORMAL; POLYCHROMASIA 1+ (0-0); SEG NEUT #M 17.9 10^3/ul (1.6-7.5); SEGMENTED NEUTROPHILS (M) % 92 % (39-77)
[2017-09-30] MEDS: ACETAMINOPHEN 325 MG TAB PO ×2 (10:01→18:25)
[2017-09-30] MEDS: POTASSIUM CHLORIDE 10 MEQ in SOD CHLORIDE 0.9% 100 ML IVPB (12:05)
[2017-09-30 14:10] LABS: IMMEDIATE SPIN CROSSMATCH 1 2
[2017-09-30 16:07] LABS: HEPATITIS B DELTA ANTIBODY NEGATIVE
[2017-09-30 16:16] LABS: VANCOMYCIN,TROUGH 22.1 ug/ml (10.0-20.0)
[2017-09-30] MEDS: VANCOMYCIN IVPB (18:52)
[2017-09-30] MEDS: SOD CHLORIDE 0.9% IVPB (18:52)
[2017-10-01] MEDS: VANCOMYCIN IVPB ×4 (00:21→23:01)
[2017-10-01] MEDS: SOD CHLORIDE 0.9% IVPB ×4 (00:21→23:01)
[2017-10-01] MEDS: PROPOFOL 100 ML IV ×4 (00:21→23:01)
[2017-10-01 06:07] LABS: ADD MAN DIFF? NO
[2017-10-01 06:14] LABS: BASOPHILS % 0.1 % (0.0-2.0); EOSINOPHILS # 0.1 10^3/ul (0.0-0.5); EOSINOPHILS % 0.4 % (0.0-7.0); HEMATOCRIT 25.7 % (37.0-47.0); LYMPHOCYTES # 1.3 10^3/ul (0.8-2.9); LYMPHOCYTES % 7.5 % (15.0-51.0); MEAN CORPUSCULAR HEMOGLOBIN 29.7 pg (29.0-33.0); MEAN CORPUSCULAR VOLUME 84.8 fl (82.0-101.0); MEAN PLATELET VOLUME 10.9 fl (7.4-10.4); MONOCYTE # 0.6 10^3/ul (0.3-0.9); MONOCYTES % 3.4 % (0.0-11.0); NEUTROPHIL # 14.9 10^3/ul (1.6-7.5); NEUTROPHILS % 87.6 % (39.0-77.0); PLATELET COUNT 405 10^3/UL (140-415); RED BLOOD COUNT 3.03 10^6/ul (4.20-5.40); RED CELL DISTRIBUTION WIDTH 14.9 % (11.5-14.5)
[2017-10-01] MEDS: PANTOPRAZOLE 40 MG INJ IV (06:20)
[2017-10-01] MEDS: ACETAMINOPHEN 325 MG TAB PO ×2 (06:21→23:01)
[2017-10-01 06:41] LABS: ANION GAP 13 (8-16); BLOOD UREA NITROGEN 13 mg/dl (7-20); CARBON DIOXIDE 23 mmol/L (21-31); CHLORIDE 105 mmol/L (97-110); CREATININE 0.49 mg/dl (0.44-1.00); GLUCOSE 98 mg/dl (70-220); POTASSIUM 3.7 mmol/L (3.5-5.1); SODIUM 137 mmol/L (135-144)
[2017-10-01] MEDS: DAPTOMYCIN 500 MG in SOD CHLORIDE 0.9% 100 ML IVPB (08:01)
[2017-10-01] MEDS: RIFAMPIN 300 MG CAP NGT (08:08)
[2017-10-01] MEDS: NICOTINE (14 MG/24 HR) PATCH TRANSDERM (08:09)
[2017-10-01] MEDS: ENOXAPARIN 40 MG/0.4 ML SYG SC (08:11)
[2017-10-01] MEDS: LORAZEPAM 2 MG INJ IV ×2 (09:45→16:45)
[2017-10-01] MEDS: CALCIUM GLUCONATE 10% 1 GM in DEXTROSE 5% 100 ML IVPB (10:42)
[2017-10-01 12:22] LABS: AMPHETAMINE/METHAMPHETAMINE Negative (NEGATIVE); BARBITURATES Negative (NEGATIVE); BENZODIAZEPINES Negative (NEGATIVE); CANNABINOIDS Negative (NEGATIVE); COCAINE Negative (NEGATIVE); OPIATES Negative (NEGATIVE)
[2017-10-01] MEDS ORDERED: LIDOCAINE 1% (MDV) 10 ML INJ (13:46)
[2017-10-01 14:18] LABS: PATH REVIEW CH
[2017-10-01] MEDS: [UNRECOGNIZED DRUG - OTHER] IVPB (15:15)
[2017-10-01] MEDS: KCL IVPB (15:15)
[2017-10-01 15:52] LABS: FLD MN% 23.3 %; FLD PMN% 76.7 %; FLD RBC 31000 /uL; FLD WBC 433 /cmm
[2017-10-01 16:18] LABS: FLUID GLUCOSE 60 mg/dl
[2017-10-01 16:38] LABS: FLD TYPE OTHERS
[2017-10-01 16:38] LABS: FLD CLARITY BLOODY
[2017-10-01 16:39] LABS: FLD COLOR RED
[2017-10-02 06:02] LABS: ADD MAN DIFF? NO
[2017-10-02 06:08] LABS: WHITE BLOOD COUNT 12.9 10^3/ul (4.8-10.8)
[2017-10-02 06:08] LABS: BASOPHILS % 0.1 % (0.0-2.0); EOSINOPHILS # 0.1 10^3/ul (0.0-0.5); EOSINOPHILS % 0.8 % (0.0-7.0); HEMATOCRIT 22.1 % (37.0-47.0); HEMOGLOBIN 7.6 g/dl (12.0-16.0); LYMPHOCYTES # 1.3 10^3/ul (0.8-2.9); LYMPHOCYTES % 10.4 % (15.0-51.0); MEAN CORPUSCULAR HEMOGLOBIN 29.5 pg (29.0-33.0); MEAN CORPUSCULAR HGB CONC 34.4 g/dl (32.0-37.0); MEAN CORPUSCULAR VOLUME 85.7 fl (82.0-101.0); MONOCYTE # 0.6 10^3/ul (0.3-0.9); MONOCYTES % 4.5 % (0.0-11.0); NEUTROPHIL # 10.7 10^3/ul (1.6-7.5); NEUTROPHILS % 83.2 % (39.0-77.0); PLATELET COUNT 520 10^3/UL (140-415); RED BLOOD COUNT 2.58 10^6/ul (4.20-5.40); RED CELL DISTRIBUTION WIDTH 14.8 % (11.5-14.5)
[2017-10-02] MEDS: PANTOPRAZOLE 40 MG INJ IV (06:49)
[2017-10-02] MEDS: VANCOMYCIN IVPB ×4 (06:49→21:15)
[2017-10-02] MEDS: IBUPROFEN 600 MG TAB GTB (06:49)
[2017-10-02] MEDS: SOD CHLORIDE 0.9% IVPB ×4 (06:49→21:15)
[2017-10-02 06:52] LABS: ALANINE AMINOTRANSFERASE 27 IU/L (13-69); ALBUMIN/GLOBULIN RATIO 0.45; ALKALINE PHOSPHATASE 108 IU/L (42-121); ANION GAP 12 (8-16); ASPARTATE AMINO TRANSFERASE 30 IU/L (15-46); BILIRUBIN,INDIRECT 0.2 mg/dl (0-1.1); BILIRUBIN,TOTAL 0.2 mg/dl (0.2-1.3); BLOOD UREA NITROGEN 12 mg/dl (7-20); CALCIUM 6.9 mg/dl (8.4-10.2); CARBON DIOXIDE 24 mmol/L (21-31); CHLORIDE 104 mmol/L (97-110); CREATININE 0.55 mg/dl (0.44-1.00); GLUCOSE 78 mg/dl (70-220); SODIUM 136 mmol/L (135-144); TOTAL PROTEIN 6.4 g/dl (6.1-8.1)
[2017-10-02] MEDS: DAPTOMYCIN 500 MG in SOD CHLORIDE 0.9% 100 ML IVPB (08:41)
[2017-10-02] MEDS: NICOTINE (14 MG/24 HR) PATCH TRANSDERM (08:41)
[2017-10-02] MEDS: RIFAMPIN 300 MG CAP NGT (08:41)
[2017-10-02 11:56] LABS: HEMATOCRIT 21.2 % (37.0-47.0); HEMOGLOBIN 7.2 g/dl (12.0-16.0)
[2017-10-02 15:32] LABS: VANCOMYCIN,TROUGH 16.5 ug/ml (10.0-20.0)
[2017-10-02] MEDS: PROPOFOL 100 ML IV ×2 (16:15→23:07)
[2017-10-02] MEDS: LORAZEPAM 2 MG INJ IV (23:07)
[2017-10-03 05:34] LABS: ANION GAP 13 (8-16); BLOOD UREA NITROGEN 87 mg/dl (7-20); CARBON DIOXIDE 31 mmol/L (21-31); CHLORIDE 98 mmol/L (97-110); CREATININE 1.58 mg/dl (0.44-1.00); GLUCOSE 114 mg/dl (70-220); POTASSIUM 4.9 mmol/L (3.5-5.1); SODIUM 137 mmol/L (135-144)
[2017-10-03] MEDS: VANCOMYCIN IVPB ×3 (05:39→17:45)
[2017-10-03] MEDS: SOD CHLORIDE 0.9% IVPB ×3 (05:39→17:45)
[2017-10-03] MEDS: PROPOFOL 100 ML IV ×3 (05:39→20:52)
[2017-10-03] MEDS: PANTOPRAZOLE 40 MG INJ IV (05:39)
[2017-10-03] MEDS: SOD CHLORIDE 0.9% 1,000 ML IV ×2 (08:59→19:53)
[2017-10-03] MEDS: RIFAMPIN 300 MG CAP NGT (08:59)
[2017-10-03] MEDS: SOD CHLORIDE 0.9% 500 ML IV (09:09)
[2017-10-03] MEDS: NICOTINE (14 MG/24 HR) PATCH TRANSDERM (09:23)
[2017-10-03] MEDS: SOD CHLORIDE 0.9% 250 ML IV* (09:49)
[2017-10-03 11:46] LABS: ANION GAP 12 (8-16); BLOOD UREA NITROGEN 12 mg/dl (7-20); CALCIUM 7.2 mg/dl (8.4-10.2); CARBON DIOXIDE 25 mmol/L (21-31); CHLORIDE 105 mmol/L (97-110); CREATININE 0.51 mg/dl (0.44-1.00); GLUCOSE 87 mg/dl (70-220); POTASSIUM 3.8 mmol/L (3.5-5.1); SODIUM 138 mmol/L (135-144)
[2017-10-03] MEDS: DAPTOMYCIN 500 MG in SOD CHLORIDE 0.9% 100 ML IVPB (12:19)
[2017-10-03] MEDS: ACETAMINOPHEN 325 MG TAB PO (13:55)
[2017-10-03] MEDS: LORAZEPAM 2 MG INJ IV ×2 (14:56→23:35)
[2017-10-03 17:21] LABS: IMMEDIATE SPIN CROSSMATCH 1 2
[2017-10-03 21:59] LABS: HEMATOCRIT 30.6 % (37.0-47.0); HEMOGLOBIN 10.5 g/dl (12.0-16.0)
[2017-10-04] MEDS: VANCOMYCIN IVPB ×4 (01:31→20:30)
[2017-10-04] MEDS: SOD CHLORIDE 0.9% IVPB ×4 (01:31→20:30)
[2017-10-04] MEDS: PROPOFOL 100 ML IV ×4 (02:15→18:22)
[2017-10-04] MEDS: LORAZEPAM 2 MG INJ IV (04:51)
[2017-10-04 05:35] LABS: ADD MAN DIFF? NO; BASOPHILS % 0.3 % (0.0-2.0); EOSINOPHILS # 0.1 10^3/ul (0.0-0.5); EOSINOPHILS % 0.9 % (0.0-7.0); HEMATOCRIT 28.6 % (37.0-47.0); HEMOGLOBIN 9.8 g/dl (12.0-16.0); LYMPHOCYTES # 1.2 10^3/ul (0.8-2.9); MEAN CORPUSCULAR HGB CONC 34.3 g/dl (32.0-37.0); MEAN CORPUSCULAR VOLUME 87.5 fl (82.0-101.0); MEAN PLATELET VOLUME 9.4 fl (7.4-10.4); MONOCYTE # 0.6 10^3/ul (0.3-0.9); NEUTROPHILS % 81.8 % (39.0-77.0); PLATELET COUNT 604 10^3/UL (140-415); RED BLOOD COUNT 3.27 10^6/ul (4.20-5.40); RED CELL DISTRIBUTION WIDTH 14.1 % (11.5-14.5)
[2017-10-04 06:06] LABS: ANION GAP 13 (8-16); BLOOD UREA NITROGEN 11 mg/dl (7-20); CARBON DIOXIDE 24 mmol/L (21-31); CHLORIDE 105 mmol/L (97-110); CREATININE 0.48 mg/dl (0.44-1.00); GLUCOSE 113 mg/dl (70-220); POTASSIUM 3.6 mmol/L (3.5-5.1); SODIUM 138 mmol/L (135-144)
[2017-10-04] MEDS: PANTOPRAZOLE 40 MG INJ IV (06:26)
[2017-10-04] MEDS: SOD CHLORIDE 0.9% 1,000 ML IV ×3 (06:26→20:55)
[2017-10-04 06:41] LABS: CREATINE KINASE 32 IU/L (23-200)
[2017-10-04 07:33] LABS: ERYTHROCYTE SEDIMENTATION RATE 105 mm/Hr (0-20)
[2017-10-04] MEDS: DAPTOMYCIN 500 MG in SOD CHLORIDE 0.9% 100 ML IVPB (08:54)
[2017-10-04] MEDS: RIFAMPIN 300 MG CAP NGT (08:54)
[2017-10-04] MEDS: NICOTINE (14 MG/24 HR) PATCH TRANSDERM (08:54)
[2017-10-04] MEDS: POTASSIUM CHLORIDE 50 ML IVPB (10:04)
[2017-10-04 19:11] LABS: VANCOMYCIN,TROUGH 12.6 ug/ml (10.0-20.0)
[2017-10-05] MEDS: PROPOFOL 100 ML IV ×4 (01:16→22:19)
[2017-10-05] MEDS: SOD CHLORIDE 0.9% IVPB ×2 (01:25→06:39)
[2017-10-05] MEDS: VANCOMYCIN IVPB ×2 (01:25→06:39)
[2017-10-05] MEDS: LORAZEPAM 2 MG INJ IV ×3 (02:03→14:40)
[2017-10-05] MEDS: PANTOPRAZOLE 40 MG INJ IV (05:28)
[2017-10-05] MEDS: ACETAMINOPHEN 325 MG TAB PO (05:28)
[2017-10-05 06:11] LABS: CREATINE KINASE 35 IU/L (23-200)
[2017-10-05] MEDS: RIFAMPIN 300 MG CAP NGT (08:25)
[2017-10-05] MEDS: DAPTOMYCIN 500 MG in SOD CHLORIDE 0.9% 100 ML IVPB (08:25)
[2017-10-05] MEDS: NICOTINE (14 MG/24 HR) PATCH TRANSDERM (08:26)
[2017-10-05] MEDS: SOD CHLORIDE 0.9% 1,000 ML IV ×2 (10:59→21:30)
[2017-10-05] MEDS: VANCOMYCIN 750 MG in DEXTROSE 5% 150 ML IVPB ×2 (13:13→18:28)
[2017-10-06] MEDS: LORAZEPAM 2 MG INJ IV ×3 (01:17→14:49)
[2017-10-06] MEDS: VANCOMYCIN 750 MG in DEXTROSE 5% 150 ML IVPB (01:17)
[2017-10-06] MEDS: SOD CHLORIDE 0.9% 1,000 ML IV ×2 (01:20→14:49)
[2017-10-06] MEDS: PROPOFOL 100 ML IV ×4 (05:09→20:23)
[2017-10-06 05:54] LABS: ADD MAN DIFF? NO
[2017-10-06 06:15] LABS: WHITE BLOOD COUNT 8.2 10^3/ul (4.8-10.8)
[2017-10-06 06:15] LABS: BASOPHILS % 0.2 % (0.0-2.0); EOSINOPHILS # 0.2 10^3/ul (0.0-0.5); EOSINOPHILS % 2.1 % (0.0-7.0); HEMATOCRIT 27.7 % (37.0-47.0); HEMOGLOBIN 9.2 g/dl (12.0-16.0); LYMPHOCYTES # 1.4 10^3/ul (0.8-2.9); LYMPHOCYTES % 17.6 % (15.0-51.0); MEAN CORPUSCULAR HEMOGLOBIN 29.4 pg (29.0-33.0); MEAN CORPUSCULAR HGB CONC 33.2 g/dl (32.0-37.0); MEAN CORPUSCULAR VOLUME 88.5 fl (82.0-101.0); MEAN PLATELET VOLUME 8.9 fl (7.4-10.4); MONOCYTE # 0.6 10^3/ul (0.3-0.9); MONOCYTES % 7.1 % (0.0-11.0); NEUTROPHIL # 5.9 10^3/ul (1.6-7.5); NEUTROPHILS % 72.4 % (39.0-77.0); PLATELET COUNT 609 10^3/UL (140-415); RED BLOOD COUNT 3.13 10^6/ul (4.20-5.40); RED CELL DISTRIBUTION WIDTH 13.8 % (11.5-14.5)
[2017-10-06] MEDS: PANTOPRAZOLE 40 MG INJ IV (06:37)
[2017-10-06 06:45] LABS: ANION GAP 13 (8-16); BLOOD UREA NITROGEN 9 mg/dl (7-20); CALCIUM 7.7 mg/dl (8.4-10.2); CARBON DIOXIDE 27 mmol/L (21-31); CHLORIDE 103 mmol/L (97-110); CREATININE 0.51 mg/dl (0.44-1.00); GLUCOSE 99 mg/dl (70-220); MAGNESIUM 2.1 mg/dl (1.7-2.5); PHOSPHORUS 3.9 mg/dl (2.5-4.9); SODIUM 139 mmol/L (135-144)
[2017-10-06] MEDS: RIFAMPIN 300 MG CAP NGT (08:47)
[2017-10-06] MEDS: DAPTOMYCIN 500 MG in SOD CHLORIDE 0.9% 100 ML IVPB (08:47)
[2017-10-06] MEDS: NICOTINE (14 MG/24 HR) PATCH TRANSDERM (08:48)
[2017-10-06] MEDS: METHADONE 10 MG TAB PO (11:06)
[2017-10-06] MEDS: FAMOTIDINE 20 MG TAB NGT (20:22)
[2017-10-07] MEDS: PROPOFOL 100 ML IV ×2 (02:22→07:11)
[2017-10-07] MEDS: LORAZEPAM 2 MG INJ IV ×4 (02:30→20:20)
[2017-10-07 05:38] LABS: ADD MAN DIFF? NO
[2017-10-07 05:44] LABS: WHITE BLOOD COUNT 7.4 10^3/ul (4.8-10.8)
[2017-10-07 05:44] LABS: BASOPHILS % 0.3 % (0.0-2.0); EOSINOPHILS # 0.1 10^3/ul (0.0-0.5); EOSINOPHILS % 1.9 % (0.0-7.0); HEMATOCRIT 26.3 % (37.0-47.0); HEMOGLOBIN 8.7 g/dl (12.0-16.0); LYMPHOCYTES # 1.3 10^3/ul (0.8-2.9); LYMPHOCYTES % 17.5 % (15.0-51.0); MEAN CORPUSCULAR HEMOGLOBIN 29.4 pg (29.0-33.0); MEAN CORPUSCULAR HGB CONC 33.1 g/dl (32.0-37.0); MEAN CORPUSCULAR VOLUME 88.9 fl (82.0-101.0); MEAN PLATELET VOLUME 8.8 fl (7.4-10.4); MONOCYTE # 0.6 10^3/ul (0.3-0.9); MONOCYTES % 7.6 % (0.0-11.0); NEUTROPHIL # 5.3 10^3/ul (1.6-7.5); NEUTROPHILS % 72.2 % (39.0-77.0); PLATELET COUNT 521 10^3/UL (140-415); RED BLOOD COUNT 2.96 10^6/ul (4.20-5.40); RED CELL DISTRIBUTION WIDTH 13.6 % (11.5-14.5)
[2017-10-07 05:50] LABS: ALANINE AMINOTRANSFERASE 31 IU/L (13-69); ALBUMIN 2.3 g/dl (3.3-4.9); ALBUMIN/GLOBULIN RATIO 0.46; ALKALINE PHOSPHATASE 115 IU/L (42-121); ANION GAP 12 (8-16); ASPARTATE AMINO TRANSFERASE 34 IU/L (15-46); BILIRUBIN,INDIRECT 0.1 mg/dl (0-1.1); BILIRUBIN,TOTAL 0.1 mg/dl (0.2-1.3); BLOOD UREA NITROGEN 9 mg/dl (7-20); CALCIUM 7.7 mg/dl (8.4-10.2); CARBON DIOXIDE 28 mmol/L (21-31); CHLORIDE 102 mmol/L (97-110); GLUCOSE 90 mg/dl (70-220); POTASSIUM 3.9 mmol/L (3.5-5.1); SODIUM 138 mmol/L (135-144); TOTAL PROTEIN 7.2 g/dl (6.1-8.1)
[2017-10-07] MEDS: DAPTOMYCIN 500 MG in SOD CHLORIDE 0.9% 100 ML IVPB (08:25)
[2017-10-07] MEDS: FAMOTIDINE 20 MG TAB NGT (09:00)
[2017-10-07] MEDS: RIFAMPIN 300 MG CAP NGT (09:00)
[2017-10-07] MEDS: NICOTINE (14 MG/24 HR) PATCH TRANSDERM (15:19)
[2017-10-07] MEDS: NYSTATIN SUSP 5 ML CUP PO ×3 (15:19→20:13)
[2017-10-07] MEDS: METHADONE 10 MG TAB PO ×2 (15:20→23:05)
[2017-10-07] MEDS: morphine 2 MG INJ IV (16:48)
[2017-10-07] MEDS ORDERED: FAMOTIDINE 20 MG INJ IV (21:00)
[2017-10-08] MEDS: LORAZEPAM 2 MG INJ IV ×4 (00:17→21:45)
[2017-10-08 06:06] LABS: ADD MAN DIFF? NO
[2017-10-08 06:24] LABS: WHITE BLOOD COUNT 13.4 10^3/ul (4.8-10.8)
[2017-10-08 06:24] LABS: BASOPHIL # 0.1 10^3/ul (0.0-0.1); BASOPHILS % 0.4 % (0.0-2.0); EOSINOPHILS # 0.1 10^3/ul (0.0-0.5); EOSINOPHILS % 0.5 % (0.0-7.0); HEMATOCRIT 36.8 % (37.0-47.0); HEMOGLOBIN 12.2 g/dl (12.0-16.0); LYMPHOCYTES # 1.7 10^3/ul (0.8-2.9); LYMPHOCYTES % 12.7 % (15.0-51.0); MEAN CORPUSCULAR HEMOGLOBIN 28.6 pg (29.0-33.0); MEAN CORPUSCULAR HGB CONC 33.2 g/dl (32.0-37.0); MEAN CORPUSCULAR VOLUME 86.4 fl (82.0-101.0); MEAN PLATELET VOLUME 8.5 fl (7.4-10.4); MONOCYTE # 0.7 10^3/ul (0.3-0.9); MONOCYTES % 5.4 % (0.0-11.0); NEUTROPHIL # 10.7 10^3/ul (1.6-7.5); NEUTROPHILS % 80.2 % (39.0-77.0); PLATELET COUNT 629 10^3/UL (140-415); RED BLOOD COUNT 4.26 10^6/ul (4.20-5.40); RED CELL DISTRIBUTION WIDTH 13.1 % (11.5-14.5)
[2017-10-08 06:55] LABS: ANION GAP 17 (8-16); BLOOD UREA NITROGEN 11 mg/dl (7-20); CARBON DIOXIDE 27 mmol/L (21-31); CHLORIDE 98 mmol/L (97-110); GLUCOSE 80 mg/dl (70-220); POTASSIUM 3.5 mmol/L (3.5-5.1); SODIUM 138 mmol/L (135-144)
[2017-10-08] MEDS: morphine 2 MG INJ IV ×2 (07:38→12:41)
[2017-10-08] MEDS: RIFAMPIN 300 MG CAP NGT (08:18)
[2017-10-08] MEDS: NYSTATIN SUSP 5 ML CUP PO ×4 (08:18→21:48)
[2017-10-08] MEDS: METHADONE 10 MG TAB PO ×3 (08:24→23:30)
[2017-10-08] MEDS: NICOTINE (14 MG/24 HR) PATCH TRANSDERM (08:24)
[2017-10-08] MEDS: DAPTOMYCIN 500 MG in SOD CHLORIDE 0.9% 100 ML IVPB (08:24)
[2017-10-08] MEDS ORDERED: morphine LIQ (10 MG/5 ML) CUP GTB (14:00)
[2017-10-08] MEDS ORDERED: IBUPROFEN 600 MG TAB PO (17:00)
[2017-10-09] MEDS: LORAZEPAM 2 MG INJ IV ×3 (02:22→12:36)
[2017-10-09] MEDS: morphine LIQ (10 MG/5 ML) CUP PO (03:43)
[2017-10-09 06:21] LABS: ADD MAN DIFF? NO
[2017-10-09 06:26] LABS: WHITE BLOOD COUNT 9.4 10^3/ul (4.8-10.8)
[2017-10-09 06:26] LABS: BASOPHILS % 0.4 % (0.0-2.0); EOSINOPHILS # 0.1 10^3/ul (0.0-0.5); EOSINOPHILS % 1.5 % (0.0-7.0); HEMOGLOBIN 11.6 g/dl (12.0-16.0); LYMPHOCYTES # 1.4 10^3/ul (0.8-2.9); LYMPHOCYTES % 15.1 % (15.0-51.0); MEAN CORPUSCULAR HEMOGLOBIN 28.5 pg (29.0-33.0); MEAN CORPUSCULAR HGB CONC 33.1 g/dl (32.0-37.0); MEAN PLATELET VOLUME 8.2 fl (7.4-10.4); MONOCYTE # 0.5 10^3/ul (0.3-0.9); MONOCYTES % 5.6 % (0.0-11.0); NEUTROPHIL # 7.2 10^3/ul (1.6-7.5); NEUTROPHILS % 76.9 % (39.0-77.0); PLATELET COUNT 526 10^3/UL (140-415); RED BLOOD COUNT 4.07 10^6/ul (4.20-5.40); RED CELL DISTRIBUTION WIDTH 13.2 % (11.5-14.5)
[2017-10-09 06:51] LABS: PHOSPHORUS 4.6 mg/dl (2.5-4.9)
[2017-10-09 06:54] LABS: ANION GAP 18 (8-16); BLOOD UREA NITROGEN 13 mg/dl (7-20); CALCIUM 7.9 mg/dl (8.4-10.2); CARBON DIOXIDE 24 mmol/L (21-31); CHLORIDE 101 mmol/L (97-110); CREATININE 0.44 mg/dl (0.44-1.00); GLUCOSE 73 mg/dl (70-220); POTASSIUM 3.9 mmol/L (3.5-5.1); SODIUM 139 mmol/L (135-144)
[2017-10-09] MEDS: DAPTOMYCIN 500 MG in SOD CHLORIDE 0.9% 100 ML IVPB (08:41)
[2017-10-09] MEDS: RIFAMPIN 300 MG CAP PO (08:42)
[2017-10-09] MEDS: NYSTATIN SUSP 5 ML CUP PO ×4 (08:43→21:42)
[2017-10-09] MEDS: NICOTINE (14 MG/24 HR) PATCH TRANSDERM (08:43)
[2017-10-09] MEDS: IOHEXOL 300MG/ML 150 ML BTL (15:17)
[2017-10-09] MEDS: SOD CHLORIDE 0.9% 100 ML (15:17)
[2017-10-09] MEDS: LORAZEPAM 1 MG TAB PO ×2 (16:32→23:18)
[2017-10-09] MEDS: METHADONE 10 MG TAB PO (21:43)
[2017-10-10] MEDS: ACETAMINOPHEN 325 MG TAB PO (03:52)
[2017-10-10 06:38] LABS: ADD MAN DIFF? NO
[2017-10-10 06:48] LABS: BASOPHIL # 0.1 10^3/ul (0.0-0.1); BASOPHILS % 0.6 % (0.0-2.0); EOSINOPHILS # 0.1 10^3/ul (0.0-0.5); EOSINOPHILS % 0.6 % (0.0-7.0); HEMATOCRIT 33.9 % (37.0-47.0); HEMOGLOBIN 11.6 g/dl (12.0-16.0); LYMPHOCYTES # 1.4 10^3/ul (0.8-2.9); MEAN CORPUSCULAR HEMOGLOBIN 28.9 pg (29.0-33.0); MEAN CORPUSCULAR HGB CONC 34.2 g/dl (32.0-37.0); MEAN CORPUSCULAR VOLUME 84.3 fl (82.0-101.0); MEAN PLATELET VOLUME 8.7 fl (7.4-10.4); MONOCYTE # 0.7 10^3/ul (0.3-0.9); MONOCYTES % 5.8 % (0.0-11.0); NEUTROPHIL # 10.3 10^3/ul (1.6-7.5); NEUTROPHILS % 81.4 % (39.0-77.0); PLATELET COUNT 543 10^3/UL (140-415); RED BLOOD COUNT 4.02 10^6/ul (4.20-5.40); RED CELL DISTRIBUTION WIDTH 13.2 % (11.5-14.5)
[2017-10-10 06:48] LABS: WHITE BLOOD COUNT 12.7 10^3/ul (4.8-10.8)
[2017-10-10 07:09] LABS: ANION GAP 16 (8-16); BLOOD UREA NITROGEN 9 mg/dl (7-20); CALCIUM 8.3 mg/dl (8.4-10.2); CARBON DIOXIDE 25 mmol/L (21-31); CHLORIDE 99 mmol/L (97-110); CREATININE 0.41 mg/dl (0.44-1.00); GLUCOSE 94 mg/dl (70-220); POTASSIUM 3.3 mmol/L (3.5-5.1); SODIUM 137 mmol/L (135-144)
[2017-10-10 07:12] LABS: PHOSPHORUS 4.6 mg/dl (2.5-4.9)
[2017-10-10 07:12] LABS: MAGNESIUM 1.8 mg/dl (1.7-2.5)
[2017-10-10] MEDS: LORAZEPAM 1 MG TAB PO ×2 (07:54→14:26)
[2017-10-10] MEDS: DAPTOMYCIN 500 MG in SOD CHLORIDE 0.9% 100 ML IVPB (07:55)
[2017-10-10] MEDS: NYSTATIN SUSP 5 ML CUP PO ×4 (08:15→21:15)
[2017-10-10] MEDS: NICOTINE (14 MG/24 HR) PATCH TRANSDERM (08:15)
[2017-10-10] MEDS: METHADONE 10 MG TAB PO ×2 (08:15→14:13)
[2017-10-10] MEDS: RIFAMPIN 300 MG CAP PO (08:15)
[2017-10-10] MEDS: HYDROCODONE/APAP (5/325) TAB PO ×2 (12:08→16:04)
[2017-10-10] MEDS: BUSPIRONE 5 MG TAB PO ×2 (12:08→21:15)
[2017-10-10] MEDS: DOCUSATE SODIUM 100 MG CAP PO (14:26)
[2017-10-10] MEDS: BISACODYL (EC) 5 MG TAB PO (14:26)
[2017-10-11] MEDS: LORAZEPAM 1 MG TAB PO (02:31)
[2017-10-11] MEDS: METHADONE 10 MG TAB PO ×3 (03:00→18:51)
[2017-10-11] MEDS: NYSTATIN 30 GM POWDER BTL TOP ×2 (06:17→19:49)
[2017-10-11] MEDS: KETOROLAC 30 MG INJ IV ×3 (07:56→21:37)
[2017-10-11] MEDS: DAPTOMYCIN 500 MG in SOD CHLORIDE 0.9% 100 ML IVPB (10:21)
[2017-10-11] MEDS: NICOTINE (14 MG/24 HR) PATCH TRANSDERM (10:22)
[2017-10-11] MEDS: FLUCONAZOLE 100 MG TAB PO (10:22)
[2017-10-11] MEDS: BUSPIRONE 5 MG TAB PO ×3 (10:22→21:00)
[2017-10-11] MEDS: MEGESTROL (40 MG/ML) 10ML CUP PO (10:22)
[2017-10-11] MEDS: RIFAMPIN 300 MG CAP PO (10:22)
[2017-10-12] MEDS: BUSPIRONE 5 MG TAB PO ×4 (01:55→20:56)
[2017-10-12] MEDS: HYDROCODONE/APAP (5/325) TAB PO ×5 (01:55→23:19)
[2017-10-12] MEDS: KETOROLAC 30 MG INJ IV ×2 (03:59→12:22)
[2017-10-12 05:42] LABS: ADD MAN DIFF? NO
[2017-10-12 05:46] LABS: WHITE BLOOD COUNT 9.1 10^3/ul (4.8-10.8)
[2017-10-12 05:46] LABS: BASOPHIL # 0.1 10^3/ul (0.0-0.1); BASOPHILS % 0.7 % (0.0-2.0); EOSINOPHILS # 0.3 10^3/ul (0.0-0.5); HEMOGLOBIN 11.3 g/dl (12.0-16.0); LYMPHOCYTES # 1.8 10^3/ul (0.8-2.9); LYMPHOCYTES % 19.6 % (15.0-51.0); MEAN CORPUSCULAR HEMOGLOBIN 29.1 pg (29.0-33.0); MEAN CORPUSCULAR HGB CONC 33.2 g/dl (32.0-37.0); MEAN CORPUSCULAR VOLUME 87.6 fl (82.0-101.0); MEAN PLATELET VOLUME 8.8 fl (7.4-10.4); MONOCYTE # 0.5 10^3/ul (0.3-0.9); MONOCYTES % 5.4 % (0.0-11.0); NEUTROPHIL # 6.4 10^3/ul (1.6-7.5); NEUTROPHILS % 70.4 % (39.0-77.0); PLATELET COUNT 485 10^3/UL (140-415); RED BLOOD COUNT 3.88 10^6/ul (4.20-5.40); RED CELL DISTRIBUTION WIDTH 13.6 % (11.5-14.5)
[2017-10-12 06:51] LABS: ERYTHROCYTE SEDIMENTATION RATE 73 mm/Hr (0-20)
[2017-10-12 07:34] LABS: ALANINE AMINOTRANSFERASE 29 IU/L (13-69); ALBUMIN 3.1 g/dl (3.3-4.9); ALBUMIN/GLOBULIN RATIO 0.59; ALKALINE PHOSPHATASE 97 IU/L (42-121); ANION GAP 17 (8-16); ASPARTATE AMINO TRANSFERASE 29 IU/L (15-46); BLOOD UREA NITROGEN 10 mg/dl (7-20); CALCIUM 8.7 mg/dl (8.4-10.2); CARBON DIOXIDE 24 mmol/L (21-31); CHLORIDE 104 mmol/L (97-110); CREATININE 0.47 mg/dl (0.44-1.00); GLUCOSE 113 mg/dl (70-220); POTASSIUM 3.6 mmol/L (3.5-5.1); SODIUM 141 mmol/L (135-144); TOTAL PROTEIN 8.3 g/dl (6.1-8.1)
[2017-10-12] MEDS: METHADONE 10 MG TAB PO ×3 (07:45→22:04)
[2017-10-12] MEDS: DAPTOMYCIN 500 MG in SOD CHLORIDE 0.9% 100 ML IVPB (07:50)
[2017-10-12 08:05] LABS: CREATINE KINASE 58 IU/L (23-200)
[2017-10-12] MEDS: NICOTINE (14 MG/24 HR) PATCH TRANSDERM (08:49)
[2017-10-12] MEDS: LORAZEPAM 1 MG TAB PO ×2 (08:49→15:04)
[2017-10-12] MEDS: FLUCONAZOLE 100 MG TAB PO (08:49)
[2017-10-12] MEDS: MEGESTROL (40 MG/ML) 10ML CUP PO (08:49)
[2017-10-12] MEDS: RIFAMPIN 300 MG CAP PO (08:49)
[2017-10-12] MEDS: NYSTATIN 30 GM POWDER BTL TOP ×2 (09:00→20:57)
[2017-10-12] MEDS: LIDOCAINE 5% PATCH TD (19:04)
[2017-10-12] MEDS: DOCUSATE SODIUM 100 MG CAP PO (20:56)
[2017-10-13] MEDS: LORAZEPAM 1 MG TAB PO ×3 (01:51→17:41)
[2017-10-13] MEDS: HYDROCODONE/APAP (5/325) TAB PO ×3 (03:41→15:52)
[2017-10-13 06:36] LABS: ADD MAN DIFF? NO
[2017-10-13 06:41] LABS: WHITE BLOOD COUNT 12.2 10^3/ul (4.8-10.8)
[2017-10-13 06:41] LABS: BASOPHIL # 0.1 10^3/ul (0.0-0.1); BASOPHILS % 0.6 % (0.0-2.0); EOSINOPHILS # 0.4 10^3/ul (0.0-0.5); EOSINOPHILS % 3.4 % (0.0-7.0); HEMATOCRIT 33.5 % (37.0-47.0); HEMOGLOBIN 11.1 g/dl (12.0-16.0); LYMPHOCYTES % 16.6 % (15.0-51.0); MEAN CORPUSCULAR HEMOGLOBIN 29.1 pg (29.0-33.0); MEAN CORPUSCULAR HGB CONC 33.1 g/dl (32.0-37.0); MEAN CORPUSCULAR VOLUME 87.7 fl (82.0-101.0); MEAN PLATELET VOLUME 8.4 fl (7.4-10.4); MONOCYTE # 0.7 10^3/ul (0.3-0.9); MONOCYTES % 5.7 % (0.0-11.0); NEUTROPHIL # 8.9 10^3/ul (1.6-7.5); PLATELET COUNT 507 10^3/UL (140-415); RED BLOOD COUNT 3.82 10^6/ul (4.20-5.40); RED CELL DISTRIBUTION WIDTH 13.7 % (11.5-14.5)
[2017-10-13 07:10] LABS: ANION GAP 15 (8-16); BLOOD UREA NITROGEN 7 mg/dl (7-20); CALCIUM 8.8 mg/dl (8.4-10.2); CARBON DIOXIDE 30 mmol/L (21-31); CHLORIDE 101 mmol/L (97-110); CREATININE 0.47 mg/dl (0.44-1.00); GLUCOSE 97 mg/dl (70-220); PHOSPHORUS 4.5 mg/dl (2.5-4.9); POTASSIUM 4.5 mmol/L (3.5-5.1); SODIUM 141 mmol/L (135-144)
[2017-10-13] MEDS: MEGESTROL (40 MG/ML) 10ML CUP PO (08:36)
[2017-10-13] MEDS: BUSPIRONE 5 MG TAB PO ×3 (08:36→21:11)
[2017-10-13] MEDS: DOCUSATE SODIUM 100 MG CAP PO ×2 (08:36→21:11)
[2017-10-13] MEDS: NICOTINE (14 MG/24 HR) PATCH TRANSDERM (08:36)
[2017-10-13] MEDS: RIFAMPIN 300 MG CAP PO (08:37)
[2017-10-13] MEDS: DAPTOMYCIN 500 MG in SOD CHLORIDE 0.9% 100 ML IVPB (08:37)
[2017-10-13] MEDS: FLUCONAZOLE 100 MG TAB PO (08:37)
[2017-10-13] MEDS: NYSTATIN 30 GM POWDER BTL TOP ×2 (09:10→21:15)
[2017-10-13] MEDS: METHADONE 10 MG TAB PO (12:31)
[2017-10-13] MEDS: LIDOCAINE 5% PATCH TD (21:12)
[2017-10-14] MEDS: METHADONE 10 MG TAB PO ×2 (00:43→12:50)
[2017-10-14] MEDS: LORAZEPAM 1 MG TAB PO ×2 (05:46→21:43)
[2017-10-14] MEDS: HYDROCODONE/APAP (5/325) TAB PO ×3 (07:53→20:32)
[2017-10-14] MEDS: DAPTOMYCIN 500 MG in SOD CHLORIDE 0.9% 100 ML IVPB (07:53)
[2017-10-14 07:56] LABS: PROTEIN, TOTAL 8.5 g/dL (6.1-8.1)
[2017-10-14] MEDS: NICOTINE (14 MG/24 HR) PATCH TRANSDERM (09:29)
[2017-10-14] MEDS: RIFAMPIN 300 MG CAP PO (09:29)
[2017-10-14] MEDS: FLUCONAZOLE 100 MG TAB PO (09:29)
[2017-10-14] MEDS: MEGESTROL (40 MG/ML) 10ML CUP PO (09:29)
[2017-10-14] MEDS: DOCUSATE SODIUM 100 MG CAP PO ×2 (09:29→20:18)
[2017-10-14] MEDS: BUSPIRONE 5 MG TAB PO ×3 (09:29→20:18)
[2017-10-14] MEDS: NYSTATIN 30 GM POWDER BTL TOP ×2 (09:30→20:27)
[2017-10-14] MEDS: NAPROXEN 500 MG TAB PO (11:39)
[2017-10-14 14:37] LABS: CREATININE, RANDOM URINE 58 mg/dL (20-320); PROTEIN/CREATININE RATIO 621 mg/g creat (21-161)
[2017-10-14] MEDS: LIDOCAINE 5% PATCH TD (20:26)
[2017-10-14 23:47] LABS: ALBUMIN 2.5 g/dL (3.8-4.8); ALPHA-1-GLOBULINS 0.6 g/dL (0.2-0.3); BETA 2 GLOBULINS 0.6 g/dL (0.2-0.5); BETA GLOBULINS 0.5 g/dL (0.4-0.6); GAMMA GLOBULINS 3.4 g/dL (0.8-1.7)
[2017-10-15] MEDS: METHADONE 10 MG TAB PO ×2 (01:53→14:15)
[2017-10-15] MEDS: HYDROCODONE/APAP (5/325) TAB PO ×3 (05:21→20:15)
[2017-10-15] MEDS: DOCUSATE SODIUM 100 MG CAP PO ×3 (08:09→22:49)
[2017-10-15] MEDS: FLUCONAZOLE 100 MG TAB PO (08:09)
[2017-10-15] MEDS: MEGESTROL (40 MG/ML) 10ML CUP PO (08:09)
[2017-10-15] MEDS: BUSPIRONE 5 MG TAB PO ×3 (08:09→22:49)
[2017-10-15] MEDS: LORAZEPAM 1 MG TAB PO ×2 (08:09→16:21)
[2017-10-15] MEDS: RIFAMPIN 300 MG CAP PO (08:09)
[2017-10-15] MEDS: NICOTINE (14 MG/24 HR) PATCH TRANSDERM (08:10)
[2017-10-15] MEDS: NYSTATIN 30 GM POWDER BTL TOP ×2 (08:10→21:00)
[2017-10-15] MEDS: DAPTOMYCIN 500 MG in SOD CHLORIDE 0.9% 100 ML IVPB (08:11)
[2017-10-15 08:54] LABS: ADD MAN DIFF? NO
[2017-10-15 09:02] LABS: WHITE BLOOD COUNT 13.4 10^3/ul (4.8-10.8)
[2017-10-15 09:02] LABS: BASOPHIL # 0.1 10^3/ul (0.0-0.1); BASOPHILS % 0.7 % (0.0-2.0); EOSINOPHILS # 0.4 10^3/ul (0.0-0.5); EOSINOPHILS % 3.1 % (0.0-7.0); HEMATOCRIT 38.8 % (37.0-47.0); HEMOGLOBIN 12.6 g/dl (12.0-16.0); LYMPHOCYTES % 14.6 % (15.0-51.0); MEAN CORPUSCULAR HEMOGLOBIN 29.4 pg (29.0-33.0); MEAN CORPUSCULAR HGB CONC 32.5 g/dl (32.0-37.0); MEAN CORPUSCULAR VOLUME 90.4 fl (82.0-101.0); MEAN PLATELET VOLUME 8.9 fl (7.4-10.4); MONOCYTE # 0.8 10^3/ul (0.3-0.9); MONOCYTES % 6.2 % (0.0-11.0); NEUTROPHIL # 10.1 10^3/ul (1.6-7.5); NEUTROPHILS % 74.8 % (39.0-77.0); PLATELET COUNT 464 10^3/UL (140-415); RED BLOOD COUNT 4.29 10^6/ul (4.20-5.40); RED CELL DISTRIBUTION WIDTH 13.9 % (11.5-14.5)
[2017-10-15 09:22] LABS: ANION GAP 18 (8-16); BLOOD UREA NITROGEN 7 mg/dl (7-20); CALCIUM 9.2 mg/dl (8.4-10.2); CARBON DIOXIDE 25 mmol/L (21-31); CHLORIDE 103 mmol/L (97-110); CREATININE 0.48 mg/dl (0.44-1.00); GLUCOSE 103 mg/dl (70-220); POTASSIUM 4.6 mmol/L (3.5-5.1); SODIUM 141 mmol/L (135-144)
[2017-10-15] MEDS: NAPROXEN 500 MG TAB PO (15:12)
[2017-10-15] MEDS: LIDOCAINE 5% PATCH TD (18:11)
[2017-10-16] MEDS: NAPROXEN 500 MG TAB PO ×2 (00:45→17:19)
[2017-10-16] MEDS: LORAZEPAM 1 MG TAB PO ×3 (02:22→23:11)
[2017-10-16] MEDS: METHADONE 10 MG TAB PO ×2 (06:44→20:57)
[2017-10-16 07:19] LABS: ANION GAP 18 (8-16); BLOOD UREA NITROGEN 9 mg/dl (7-20); CALCIUM 9.6 mg/dl (8.4-10.2); CARBON DIOXIDE 25 mmol/L (21-31); CHLORIDE 102 mmol/L (97-110); CREATININE 0.44 mg/dl (0.44-1.00); GLUCOSE 97 mg/dl (70-220); POTASSIUM 5.3 mmol/L (3.5-5.1); SODIUM 140 mmol/L (135-144)
[2017-10-16] MEDS: FLUCONAZOLE 100 MG TAB PO (08:41)
[2017-10-16] MEDS: BUSPIRONE 5 MG TAB PO ×3 (08:42→20:57)
[2017-10-16] MEDS: RIFAMPIN 300 MG CAP PO (08:42)
[2017-10-16] MEDS: MEGESTROL (40 MG/ML) 10ML CUP PO (08:43)
[2017-10-16] MEDS: NICOTINE (14 MG/24 HR) PATCH TRANSDERM (08:43)
[2017-10-16] MEDS: DOCUSATE SODIUM 100 MG CAP PO ×2 (08:43→20:57)
[2017-10-16] MEDS: DAPTOMYCIN 500 MG in SOD CHLORIDE 0.9% 100 ML IVPB (08:44)
[2017-10-16] MEDS: NYSTATIN 30 GM POWDER BTL TOP ×2 (08:44→20:59)
[2017-10-16] MEDS: HYDROCODONE/APAP (5/325) TAB PO ×2 (08:45→15:39)
[2017-10-16] MEDS: NA POLYST SULFON 15 GM/60 ML BTL PO (15:39)
[2017-10-16] MEDS: LIDOCAINE 5% PATCH TD (18:25)
[2017-10-17] MEDS: NAPROXEN 500 MG TAB PO (05:31)
[2017-10-17] MEDS: HYDROCODONE/APAP (5/325) TAB PO (07:49)
[2017-10-17] MEDS: DOCUSATE SODIUM 100 MG CAP PO ×2 (09:32→19:45)
[2017-10-17] MEDS: BUSPIRONE 5 MG TAB PO ×3 (09:32→19:45)
[2017-10-17] MEDS: DAPTOMYCIN 500 MG in SOD CHLORIDE 0.9% 100 ML IVPB (09:32)
[2017-10-17] MEDS: NICOTINE (14 MG/24 HR) PATCH TRANSDERM (09:33)
[2017-10-17] MEDS: MEGESTROL (40 MG/ML) 10ML CUP PO (09:33)
[2017-10-17] MEDS: RIFAMPIN 300 MG CAP PO (09:33)
[2017-10-17] MEDS: FLUCONAZOLE 100 MG TAB PO (09:33)
[2017-10-17] MEDS: NYSTATIN 30 GM POWDER BTL TOP ×2 (09:33→19:51)
[2017-10-17] MEDS: LORAZEPAM 1 MG TAB PO (09:42)
[2017-10-17] MEDS: METHADONE 10 MG TAB PO ×2 (11:15→19:45)
[2017-10-17 18:47] LABS: ADD MAN DIFF? NO
[2017-10-17 18:49] LABS: WHITE BLOOD COUNT 10.6 10^3/ul (4.8-10.8)
[2017-10-17 18:49] LABS: BASOPHIL # 0.1 10^3/ul (0.0-0.1); BASOPHILS % 0.7 % (0.0-2.0); EOSINOPHILS # 0.3 10^3/ul (0.0-0.5); EOSINOPHILS % 2.6 % (0.0-7.0); HEMATOCRIT 38.5 % (37.0-47.0); HEMOGLOBIN 12.6 g/dl (12.0-16.0); LYMPHOCYTES # 2.6 10^3/ul (0.8-2.9); MEAN CORPUSCULAR HEMOGLOBIN 29.3 pg (29.0-33.0); MEAN CORPUSCULAR HGB CONC 32.7 g/dl (32.0-37.0); MEAN CORPUSCULAR VOLUME 89.5 fl (82.0-101.0); MEAN PLATELET VOLUME 8.1 fl (7.4-10.4); MONOCYTE # 0.7 10^3/ul (0.3-0.9); MONOCYTES % 6.9 % (0.0-11.0); NEUTROPHIL # 6.8 10^3/ul (1.6-7.5); NEUTROPHILS % 64.4 % (39.0-77.0); PLATELET COUNT 564 10^3/UL (140-415); RED CELL DISTRIBUTION WIDTH 13.8 % (11.5-14.5)
[2017-10-17] MEDS: LIDOCAINE 5% PATCH TD (18:53)
[2017-10-17 19:23] LABS: ANION GAP 16 (8-16); BLOOD UREA NITROGEN 10 mg/dl (7-20); CALCIUM 9.9 mg/dl (8.4-10.2); CARBON DIOXIDE 31 mmol/L (21-31); CHLORIDE 101 mmol/L (97-110); CREATININE 0.53 mg/dl (0.44-1.00); GLUCOSE 116 mg/dl (70-220); POTASSIUM 4.7 mmol/L (3.5-5.1); SODIUM 143 mmol/L (135-144)
[2017-10-17 20:31] LABS: ERYTHROCYTE SEDIMENTATION RATE 95 mm/Hr (0-20)
[2017-10-18] MEDS: LORAZEPAM 1 MG TAB PO ×2 (01:46→19:02)
[2017-10-18] MEDS: METHADONE 10 MG TAB PO ×2 (08:23→21:12)
[2017-10-18] MEDS: RIFAMPIN 300 MG CAP PO (08:24)
[2017-10-18] MEDS: FLUCONAZOLE 100 MG TAB PO (08:25)
[2017-10-18] MEDS: DAPTOMYCIN 500 MG in SOD CHLORIDE 0.9% 100 ML IVPB (08:25)
[2017-10-18] MEDS: BUSPIRONE 5 MG TAB PO ×3 (08:25→21:11)
[2017-10-18] MEDS: DOCUSATE SODIUM 100 MG CAP PO ×2 (08:25→21:11)
[2017-10-18] MEDS: NICOTINE (14 MG/24 HR) PATCH TRANSDERM (08:26)
[2017-10-18] MEDS: MEGESTROL (40 MG/ML) 10ML CUP PO (08:26)
[2017-10-18 11:57] LABS: ANION GAP 19 (8-16); BLOOD UREA NITROGEN 8 mg/dl (7-20); CALCIUM 9.8 mg/dl (8.4-10.2); CARBON DIOXIDE 24 mmol/L (21-31); CHLORIDE 101 mmol/L (97-110); CREATININE 0.51 mg/dl (0.44-1.00); GLUCOSE 121 mg/dl (70-220); POTASSIUM 4.3 mmol/L (3.5-5.1); SODIUM 140 mmol/L (135-144)
[2017-10-18] MEDS: NYSTATIN 30 GM POWDER BTL TOP ×3 (13:52→21:12)
[2017-10-18] MEDS: HYDROCODONE/APAP (5/325) TAB PO (15:42)
[2017-10-18] MEDS: NAPROXEN 500 MG TAB PO (19:00)
[2017-10-18] MEDS: LIDOCAINE 5% PATCH TD (19:00)
[2017-10-18] MEDS: ONDANSETRON 4 MG INJ IV (22:59)
[2017-10-19] MEDS: NYSTATIN 30 GM POWDER BTL TOP ×2 (08:31→20:21)
[2017-10-19] MEDS: DAPTOMYCIN 500 MG in SOD CHLORIDE 0.9% 100 ML IVPB (08:31)
[2017-10-19] MEDS: BUSPIRONE 5 MG TAB PO ×3 (08:32→20:21)
[2017-10-19] MEDS: NICOTINE (14 MG/24 HR) PATCH TRANSDERM (08:32)
[2017-10-19] MEDS: DOCUSATE SODIUM 100 MG CAP PO ×2 (08:32→20:20)
[2017-10-19] MEDS: MEGESTROL (40 MG/ML) 10ML CUP PO (08:32)
[2017-10-19] MEDS: RIFAMPIN 300 MG CAP PO (08:32)
[2017-10-19] MEDS: METHADONE 10 MG TAB PO ×2 (08:32→20:20)
[2017-10-19 10:52] LABS: ANION GAP 18 (8-16); BLOOD UREA NITROGEN 9 mg/dl (7-20); CALCIUM 9.8 mg/dl (8.4-10.2); CARBON DIOXIDE 24 mmol/L (21-31); CHLORIDE 103 mmol/L (97-110); CREATININE 0.49 mg/dl (0.44-1.00); GLUCOSE 108 mg/dl (70-220); POTASSIUM 4.6 mmol/L (3.5-5.1); SODIUM 140 mmol/L (135-144)
[2017-10-19 11:54] LABS: CREATINE KINASE < 20 IU/L (23-200)
[2017-10-19] MEDS: LORAZEPAM 1 MG TAB PO (12:29)
[2017-10-19] MEDS: HYDROCODONE/APAP (5/325) TAB PO (17:36)
[2017-10-19] MEDS: LIDOCAINE 5% PATCH TD (20:19)
[2017-10-19] MEDS: ONDANSETRON 4 MG INJ IV (20:21)
[2017-10-20] MEDS: LORAZEPAM 1 MG TAB PO ×3 (00:27→21:39)
[2017-10-20] MEDS: NAPROXEN 500 MG TAB PO (00:37)
[2017-10-20] MEDS: DOCUSATE SODIUM 100 MG CAP PO ×2 (08:54→21:09)
[2017-10-20] MEDS: RIFAMPIN 300 MG CAP PO (08:54)
[2017-10-20] MEDS: MEGESTROL (40 MG/ML) 10ML CUP PO (08:54)
[2017-10-20] MEDS: DAPTOMYCIN 500 MG in SOD CHLORIDE 0.9% 100 ML IVPB (08:55)
[2017-10-20] MEDS: NICOTINE (14 MG/24 HR) PATCH TRANSDERM (08:55)
[2017-10-20] MEDS: METHADONE 10 MG TAB PO ×2 (08:55→21:08)
[2017-10-20] MEDS: BUSPIRONE 5 MG TAB PO ×3 (08:55→21:09)
[2017-10-20] MEDS: NYSTATIN 30 GM POWDER BTL TOP ×2 (09:09→21:10)
[2017-10-20 11:34] LABS: ADD MAN DIFF? NO
[2017-10-20 11:41] LABS: BASOPHIL # 0.1 10^3/ul (0.0-0.1); BASOPHILS % 0.7 % (0.0-2.0); EOSINOPHILS # 0.2 10^3/ul (0.0-0.5); HEMATOCRIT 37.2 % (37.0-47.0); HEMOGLOBIN 12.2 g/dl (12.0-16.0); LYMPHOCYTES # 2.3 10^3/ul (0.8-2.9); LYMPHOCYTES % 22.3 % (15.0-51.0); MEAN CORPUSCULAR HEMOGLOBIN 28.8 pg (29.0-33.0); MEAN CORPUSCULAR HGB CONC 32.8 g/dl (32.0-37.0); MEAN CORPUSCULAR VOLUME 87.9 fl (82.0-101.0); MEAN PLATELET VOLUME 8.4 fl (7.4-10.4); MONOCYTE # 0.6 10^3/ul (0.3-0.9); MONOCYTES % 5.5 % (0.0-11.0); NEUTROPHIL # 7.1 10^3/ul (1.6-7.5); NEUTROPHILS % 69.2 % (39.0-77.0); PLATELET COUNT 437 10^3/UL (140-415); RED BLOOD COUNT 4.23 10^6/ul (4.20-5.40); RED CELL DISTRIBUTION WIDTH 13.6 % (11.5-14.5)
[2017-10-20 11:41] LABS: WHITE BLOOD COUNT 10.2 10^3/ul (4.8-10.8)
[2017-10-20 13:54] LABS: ERYTHROCYTE SEDIMENTATION RATE 115 mm/Hr (0-20)
[2017-10-20] MEDS: HYDROCODONE/APAP (5/325) TAB PO (15:43)
[2017-10-20] MEDS: ONDANSETRON 4 MG INJ IV ×2 (15:43→21:53)
[2017-10-20] MEDS: LIDOCAINE 5% PATCH TD (18:07)
[2017-10-21] MEDS: HYDROCODONE/APAP (5/325) TAB PO ×3 (00:40→19:00)
[2017-10-21] MEDS: DAPTOMYCIN 500 MG in SOD CHLORIDE 0.9% 100 ML IVPB (08:45)
[2017-10-21] MEDS: DOCUSATE SODIUM 100 MG CAP PO ×2 (08:45→20:39)
[2017-10-21] MEDS: NICOTINE (14 MG/24 HR) PATCH TRANSDERM (08:45)
[2017-10-21] MEDS: RIFAMPIN 300 MG CAP PO (08:45)
[2017-10-21] MEDS: MEGESTROL (40 MG/ML) 10ML CUP PO (08:45)
[2017-10-21] MEDS: BUSPIRONE 5 MG TAB PO ×3 (08:45→20:40)
[2017-10-21] MEDS: METHADONE 10 MG TAB PO ×2 (08:46→20:39)
[2017-10-21] MEDS: NYSTATIN 30 GM POWDER BTL TOP ×2 (08:46→20:39)
[2017-10-21 10:33] LABS: ADD MAN DIFF? NO
[2017-10-21 10:36] LABS: WHITE BLOOD COUNT 9.4 10^3/ul (4.8-10.8)
[2017-10-21 10:36] LABS: BASOPHIL # 0.1 10^3/ul (0.0-0.1); BASOPHILS % 0.5 % (0.0-2.0); EOSINOPHILS # 0.1 10^3/ul (0.0-0.5); EOSINOPHILS % 1.5 % (0.0-7.0); HEMATOCRIT 37.2 % (37.0-47.0); HEMOGLOBIN 12.1 g/dl (12.0-16.0); LYMPHOCYTES # 1.4 10^3/ul (0.8-2.9); LYMPHOCYTES % 15.3 % (15.0-51.0); MEAN CORPUSCULAR HEMOGLOBIN 28.8 pg (29.0-33.0); MEAN CORPUSCULAR HGB CONC 32.5 g/dl (32.0-37.0); MEAN CORPUSCULAR VOLUME 88.6 fl (82.0-101.0); MEAN PLATELET VOLUME 8.3 fl (7.4-10.4); MONOCYTE # 0.4 10^3/ul (0.3-0.9); MONOCYTES % 4.4 % (0.0-11.0); NEUTROPHIL # 7.3 10^3/ul (1.6-7.5); NEUTROPHILS % 77.9 % (39.0-77.0); PLATELET COUNT 461 10^3/UL (140-415); RED CELL DISTRIBUTION WIDTH 13.4 % (11.5-14.5)
[2017-10-21 11:00] LABS: ALANINE AMINOTRANSFERASE 22 IU/L (13-69); ALBUMIN 3.5 g/dl (3.3-4.9); ALBUMIN/GLOBULIN RATIO 0.63; ALKALINE PHOSPHATASE 145 IU/L (42-121); ANION GAP 17 (8-16); ASPARTATE AMINO TRANSFERASE 20 IU/L (15-46); BLOOD UREA NITROGEN 10 mg/dl (7-20); CARBON DIOXIDE 27 mmol/L (21-31); CHLORIDE 99 mmol/L (97-110); GLUCOSE 156 mg/dl (70-220); POTASSIUM 4.9 mmol/L (3.5-5.1); SODIUM 138 mmol/L (135-144)
[2017-10-21] MEDS: IOHEXOL 300MG/ML 150 ML BTL (11:21)
[2017-10-21] MEDS: SOD CHLORIDE 0.9% 100 ML (11:21)
[2017-10-21] MEDS: LORAZEPAM 1 MG TAB PO (15:15)
[2017-10-21] MEDS: LIDOCAINE 5% PATCH TD (18:43)
[2017-10-21] MEDS: ONDANSETRON 4 MG INJ IV (18:56)
[2017-10-21] MEDS: AL HYDROX/MG HYDROX/SIMETH 30 ML CUP PO (22:11)
[2017-10-22] MEDS: HYDROCODONE/APAP (5/325) TAB PO ×2 (06:49→16:05)
[2017-10-22] MEDS: MEGESTROL (40 MG/ML) 10ML CUP PO (09:16)
[2017-10-22] MEDS: RIFAMPIN 300 MG CAP PO (09:17)
[2017-10-22] MEDS: NICOTINE (14 MG/24 HR) PATCH TRANSDERM (09:17)
[2017-10-22] MEDS: BUSPIRONE 5 MG TAB PO ×3 (09:17→21:18)
[2017-10-22] MEDS: DOCUSATE SODIUM 100 MG CAP PO ×2 (09:17→21:18)
[2017-10-22] MEDS: METHADONE 10 MG TAB PO ×2 (09:17→21:21)
[2017-10-22] MEDS: NYSTATIN 30 GM POWDER BTL TOP ×2 (09:18→21:00)
[2017-10-22] MEDS: DAPTOMYCIN 500 MG in SOD CHLORIDE 0.9% 100 ML IVPB (09:18)
[2017-10-22] MEDS: LIDOCAINE 5% PATCH TD (18:47)
[2017-10-22] MEDS: LORAZEPAM 1 MG TAB PO (19:01)
[2017-10-22] MEDS: NAPROXEN 500 MG TAB PO (19:04)
[2017-10-23] MEDS: NICOTINE (14 MG/24 HR) PATCH TRANSDERM (08:33)
[2017-10-23] MEDS: MEGESTROL (40 MG/ML) 10ML CUP PO (08:33)
[2017-10-23] MEDS: DOCUSATE SODIUM 100 MG CAP PO ×2 (08:33→20:55)
[2017-10-23] MEDS: METHADONE 10 MG TAB PO ×2 (08:34→17:05)
[2017-10-23] MEDS: RIFAMPIN 300 MG CAP PO (08:34)
[2017-10-23] MEDS: BUSPIRONE 5 MG TAB PO ×3 (08:34→20:55)
[2017-10-23] MEDS: DAPTOMYCIN 500 MG in SOD CHLORIDE 0.9% 100 ML IVPB (08:35)
[2017-10-23] MEDS: NYSTATIN 30 GM POWDER BTL TOP ×2 (08:41→20:56)
[2017-10-23] MEDS: HYDROCODONE/APAP (5/325) TAB PO (15:22)
[2017-10-23] MEDS: ONDANSETRON 4 MG INJ IV (15:23)
[2017-10-23] MEDS: LIDOCAINE 5% PATCH TD (18:05)
[2017-10-23] MEDS: AL HYDROX/MG HYDROX/SIMETH 30 ML CUP PO (20:55)
[2017-10-23] MEDS: LORAZEPAM 1 MG TAB PO (21:32)
[2017-10-24] MEDS: METHADONE 10 MG TAB PO ×3 (01:19→16:38)
[2017-10-24] MEDS: HYDROCODONE/APAP (5/325) TAB PO ×3 (04:13→21:19)
[2017-10-24] MEDS: DAPTOMYCIN 500 MG in SOD CHLORIDE 0.9% 100 ML IVPB (07:49)
[2017-10-24] MEDS: MEGESTROL (40 MG/ML) 10ML CUP PO (09:30)
[2017-10-24] MEDS: NICOTINE (14 MG/24 HR) PATCH TRANSDERM (09:30)
[2017-10-24] MEDS: BUSPIRONE 5 MG TAB PO ×3 (09:30→21:17)
[2017-10-24] MEDS: RIFAMPIN 300 MG CAP PO (09:30)
[2017-10-24] MEDS: DOCUSATE SODIUM 100 MG CAP PO ×2 (09:31→21:17)
[2017-10-24] MEDS: NYSTATIN 30 GM POWDER BTL TOP ×2 (09:32→21:20)
[2017-10-24 11:59] LABS: ADD MAN DIFF? NO
[2017-10-24 12:06] LABS: BASOPHIL # 0.1 10^3/ul (0.0-0.1); BASOPHILS % 0.7 % (0.0-2.0); EOSINOPHILS # 0.1 10^3/ul (0.0-0.5); EOSINOPHILS % 1.4 % (0.0-7.0); HEMATOCRIT 37.1 % (37.0-47.0); LYMPHOCYTES # 1.7 10^3/ul (0.8-2.9); LYMPHOCYTES % 18.6 % (15.0-51.0); MEAN CORPUSCULAR HEMOGLOBIN 28.6 pg (29.0-33.0); MEAN CORPUSCULAR HGB CONC 32.3 g/dl (32.0-37.0); MEAN CORPUSCULAR VOLUME 88.3 fl (82.0-101.0); MONOCYTE # 0.5 10^3/ul (0.3-0.9); NEUTROPHIL # 6.7 10^3/ul (1.6-7.5); PLATELET COUNT 418 10^3/UL (140-415); RED CELL DISTRIBUTION WIDTH 13.5 % (11.5-14.5)
[2017-10-24 13:37] LABS: ERYTHROCYTE SEDIMENTATION RATE 105 mm/Hr (0-20)
[2017-10-24] MEDS: LORAZEPAM 1 MG TAB PO (13:52)
[2017-10-24] MEDS: LIDOCAINE 5% PATCH TD (21:17)
[2017-10-25] MEDS: METHADONE 10 MG TAB PO ×3 (01:34→17:28)
[2017-10-25] MEDS: LORAZEPAM 1 MG TAB PO ×2 (02:43→22:23)
[2017-10-25] MEDS: RIFAMPIN 300 MG CAP PO (09:00)
[2017-10-25] MEDS: DOCUSATE SODIUM 100 MG CAP PO ×2 (09:00→20:40)
[2017-10-25] MEDS: NYSTATIN 30 GM POWDER BTL TOP ×2 (09:00→20:40)
[2017-10-25] MEDS: BUSPIRONE 5 MG TAB PO ×3 (09:00→20:40)
[2017-10-25] MEDS: MEGESTROL (40 MG/ML) 10ML CUP PO (09:00)
[2017-10-25] MEDS: NICOTINE (14 MG/24 HR) PATCH TRANSDERM (09:01)
[2017-10-25] MEDS: DAPTOMYCIN 500 MG in SOD CHLORIDE 0.9% 100 ML IVPB (09:07)
[2017-10-25] MEDS: HYDROCODONE/APAP (5/325) TAB PO ×2 (13:59→20:43)
[2017-10-25] MEDS: LIDOCAINE 5% PATCH TD (19:57)
[2017-10-25] MEDS: ONDANSETRON 4 MG INJ IV (20:03)
[2017-10-26 05:13] LABS: CK-MB 0.26 ng/ml (0.0-2.4)
[2017-10-26] MEDS: DAPTOMYCIN 500 MG in SOD CHLORIDE 0.9% 100 ML IVPB (08:35)
[2017-10-26] MEDS: RIFAMPIN 300 MG CAP PO (08:36)
[2017-10-26] MEDS: MEGESTROL (40 MG/ML) 10ML CUP PO (08:36)
[2017-10-26] MEDS: BUSPIRONE 5 MG TAB PO ×3 (08:36→21:08)
[2017-10-26] MEDS: NYSTATIN 30 GM POWDER BTL TOP ×2 (08:36→21:09)
[2017-10-26] MEDS: DOCUSATE SODIUM 100 MG CAP PO ×2 (08:36→21:09)
[2017-10-26] MEDS: NICOTINE (14 MG/24 HR) PATCH TRANSDERM (08:37)
[2017-10-26] MEDS: METHADONE 10 MG TAB PO (08:38)
[2017-10-26] MEDS: HYDROCODONE/APAP (5/325) TAB PO (18:09)
[2017-10-26] MEDS: LIDOCAINE 5% PATCH TD (18:29)
[2017-10-27] MEDS: HYDROCODONE/APAP (5/325) TAB PO ×2 (06:26→21:40)
[2017-10-27] MEDS: RIFAMPIN 300 MG CAP PO (08:20)
[2017-10-27] MEDS: DAPTOMYCIN 500 MG in SOD CHLORIDE 0.9% 100 ML IVPB (08:20)
[2017-10-27] MEDS: MEGESTROL (40 MG/ML) 10ML CUP PO (08:20)
[2017-10-27] MEDS: BUSPIRONE 5 MG TAB PO ×3 (08:21→21:40)
[2017-10-27] MEDS: DOCUSATE SODIUM 100 MG CAP PO ×2 (08:21→21:40)
[2017-10-27] MEDS: NICOTINE (14 MG/24 HR) PATCH TRANSDERM (08:22)
[2017-10-27] MEDS: NYSTATIN 30 GM POWDER BTL TOP ×2 (08:22→21:41)
[2017-10-27] MEDS: METHADONE 10 MG TAB PO (08:23)
[2017-10-27] MEDS: LIDOCAINE 5% PATCH TD (18:10)
[2017-10-28] MEDS: HYDROCODONE/APAP (5/325) TAB PO ×2 (03:48→18:15)
[2017-10-28 08:29] LABS: CREATINE KINASE < 20 IU/L (23-200)
[2017-10-28] MEDS: DOCUSATE SODIUM 100 MG CAP PO ×2 (08:34→20:28)
[2017-10-28] MEDS: BUSPIRONE 5 MG TAB PO ×3 (08:34→20:28)
[2017-10-28] MEDS: RIFAMPIN 300 MG CAP PO (08:34)
[2017-10-28] MEDS: MEGESTROL (40 MG/ML) 10ML CUP PO (08:34)
[2017-10-28] MEDS: METHADONE 10 MG TAB PO (08:35)
[2017-10-28] MEDS: DAPTOMYCIN 500 MG in SOD CHLORIDE 0.9% 100 ML IVPB (08:37)
[2017-10-28] MEDS: NICOTINE (14 MG/24 HR) PATCH TRANSDERM (08:37)
[2017-10-28] MEDS: NYSTATIN 30 GM POWDER BTL TOP ×2 (09:00→20:33)
[2017-10-28] MEDS: LIDOCAINE 5% PATCH TD (18:03)
[2017-10-28] MEDS: NAPROXEN 500 MG TAB PO (22:21)
[2017-10-29] MEDS: HYDROCODONE/APAP (5/325) TAB PO ×2 (00:06→06:46)
[2017-10-29 08:08] LABS: ADD MAN DIFF? NO
[2017-10-29] MEDS: NICOTINE (14 MG/24 HR) PATCH TRANSDERM (08:14)
[2017-10-29] MEDS: MEGESTROL (40 MG/ML) 10ML CUP PO (08:14)
[2017-10-29] MEDS: DAPTOMYCIN 500 MG in SOD CHLORIDE 0.9% 100 ML IVPB (08:14)
[2017-10-29 08:15] LABS: BASOPHIL # 0.1 10^3/ul (0.0-0.1); BASOPHILS % 0.6 % (0.0-2.0); EOSINOPHILS # 0.2 10^3/ul (0.0-0.5); EOSINOPHILS % 2.2 % (0.0-7.0); HEMATOCRIT 36.6 % (37.0-47.0); HEMOGLOBIN 11.8 g/dl (12.0-16.0); LYMPHOCYTES % 23.4 % (15.0-51.0); MEAN CORPUSCULAR HEMOGLOBIN 28.8 pg (29.0-33.0); MEAN CORPUSCULAR HGB CONC 32.2 g/dl (32.0-37.0); MEAN CORPUSCULAR VOLUME 89.3 fl (82.0-101.0); MEAN PLATELET VOLUME 8.1 fl (7.4-10.4); MONOCYTE # 0.5 10^3/ul (0.3-0.9); MONOCYTES % 5.7 % (0.0-11.0); NEUTROPHIL # 5.8 10^3/ul (1.6-7.5); NEUTROPHILS % 67.7 % (39.0-77.0); PLATELET COUNT 378 10^3/UL (140-415); RED CELL DISTRIBUTION WIDTH 13.7 % (11.5-14.5)
[2017-10-29 08:15] LABS: WHITE BLOOD COUNT 8.5 10^3/ul (4.8-10.8)
[2017-10-29] MEDS: BUSPIRONE 5 MG TAB PO ×3 (08:15→22:24)
[2017-10-29] MEDS: METHADONE 10 MG TAB PO (08:15)
[2017-10-29] MEDS: DOCUSATE SODIUM 100 MG CAP PO ×2 (08:15→22:24)
[2017-10-29] MEDS: RIFAMPIN 300 MG CAP PO (08:15)
[2017-10-29 08:52] LABS: ANION GAP 17 (8-16); BLOOD UREA NITROGEN 10 mg/dl (7-20); CALCIUM 9.7 mg/dl (8.4-10.2); CARBON DIOXIDE 26 mmol/L (21-31); CHLORIDE 103 mmol/L (97-110); CREATININE 0.57 mg/dl (0.44-1.00); GLUCOSE 136 mg/dl (70-220); SODIUM 141 mmol/L (135-144)
[2017-10-29] MEDS: NYSTATIN 30 GM POWDER BTL TOP ×2 (09:00→21:00)
[2017-10-29 10:55] LABS: ERYTHROCYTE SEDIMENTATION RATE 116 mm/Hr (0-20)
[2017-10-29] MEDS ORDERED: ONDANSETRON 4 MG INJ IV (14:30)
[2017-10-29] MEDS: LIDOCAINE 5% PATCH TD (18:12)
[2017-10-30] MEDS: HYDROCODONE/APAP (5/325) TAB PO ×2 (00:23→06:48)
[2017-10-30] MEDS: PANTOPRAZOLE (EC) 40 MG TAB PO (06:48)
[2017-10-30] MEDS: METHADONE 10 MG TAB PO (08:58)
[2017-10-30] MEDS: DOCUSATE SODIUM 100 MG CAP PO ×2 (08:59→20:33)
[2017-10-30] MEDS: RIFAMPIN 300 MG CAP PO (08:59)
[2017-10-30] MEDS: MEGESTROL (40 MG/ML) 10ML CUP PO (09:00)
[2017-10-30] MEDS: NICOTINE (14 MG/24 HR) PATCH TRANSDERM (09:00)
[2017-10-30] MEDS: BUSPIRONE 5 MG TAB PO ×3 (09:00→20:33)
[2017-10-30] MEDS: NYSTATIN 30 GM POWDER BTL TOP ×2 (09:00→20:49)
[2017-10-30] MEDS: DAPTOMYCIN 500 MG in SOD CHLORIDE 0.9% 100 ML IVPB (09:43)
[2017-10-30] MEDS: LIDOCAINE 5% PATCH TD (18:43)
[2017-10-31] MEDS: HYDROCODONE/APAP (5/325) TAB PO ×2 (00:19→06:31)
[2017-10-31] MEDS: PANTOPRAZOLE (EC) 40 MG TAB PO (06:30)
[2017-10-31] MEDS: NICOTINE (14 MG/24 HR) PATCH TRANSDERM (08:39)
[2017-10-31] MEDS: DAPTOMYCIN 500 MG in SOD CHLORIDE 0.9% 100 ML IVPB (08:39)
[2017-10-31] MEDS: MEGESTROL (40 MG/ML) 10ML CUP PO (08:39)
[2017-10-31] MEDS: DOCUSATE SODIUM 100 MG CAP PO ×2 (08:39→21:28)
[2017-10-31] MEDS: BUSPIRONE 5 MG TAB PO ×3 (08:40→21:28)
[2017-10-31] MEDS: RIFAMPIN 300 MG CAP PO (08:40)
[2017-10-31] MEDS: METHADONE 10 MG TAB PO (08:40)
[2017-10-31] MEDS: NYSTATIN 30 GM POWDER BTL TOP ×2 (09:00→21:29)
[2017-10-31] MEDS: LIDOCAINE 5% PATCH TD (18:55)
[2017-11-01] MEDS: HYDROCODONE/APAP (5/325) TAB PO (01:15)
[2017-11-01] MEDS: PANTOPRAZOLE (EC) 40 MG TAB PO (05:35)
[2017-11-01] MEDS: DOCUSATE SODIUM 100 MG CAP PO ×2 (08:35→20:29)
[2017-11-01] MEDS: RIFAMPIN 300 MG CAP PO (08:35)
[2017-11-01] MEDS: BUSPIRONE 5 MG TAB PO ×3 (08:35→20:29)
[2017-11-01] MEDS: DAPTOMYCIN 500 MG in SOD CHLORIDE 0.9% 100 ML IVPB (08:35)
[2017-11-01] MEDS: MEGESTROL (40 MG/ML) 10ML CUP PO (08:35)
[2017-11-01] MEDS: METHADONE 10 MG TAB PO (08:36)
[2017-11-01] MEDS: NYSTATIN 30 GM POWDER BTL TOP ×2 (08:36→20:31)
[2017-11-01] MEDS: NICOTINE (14 MG/24 HR) PATCH TRANSDERM (08:55)
[2017-11-01] MEDS: LIDOCAINE 5% PATCH TD (18:30)
[2017-11-02] MEDS: PANTOPRAZOLE (EC) 40 MG TAB PO (06:08)
[2017-11-02] MEDS: DAPTOMYCIN 500 MG in SOD CHLORIDE 0.9% 100 ML IVPB (08:32)
[2017-11-02] MEDS: METHADONE 10 MG TAB PO (08:32)
[2017-11-02] MEDS: MEGESTROL (40 MG/ML) 10ML CUP PO (08:33)
[2017-11-02] MEDS: DOCUSATE SODIUM 100 MG CAP PO ×2 (08:33→20:35)
[2017-11-02] MEDS: BUSPIRONE 5 MG TAB PO ×3 (08:33→20:35)
[2017-11-02] MEDS: RIFAMPIN 300 MG CAP PO (08:33)
[2017-11-02] MEDS: NICOTINE (14 MG/24 HR) PATCH TRANSDERM (08:34)
[2017-11-02] MEDS: NYSTATIN 30 GM POWDER BTL TOP ×2 (09:00→20:36)
[2017-11-02] MEDS: LIDOCAINE 5% PATCH TD (19:34)
[2017-11-03] MEDS: PANTOPRAZOLE (EC) 40 MG TAB PO (05:29)
[2017-11-03] MEDS: DAPTOMYCIN 500 MG in SOD CHLORIDE 0.9% 100 ML IVPB (08:30)
[2017-11-03] MEDS: RIFAMPIN 300 MG CAP PO (08:31)
[2017-11-03] MEDS: MEGESTROL (40 MG/ML) 10ML CUP PO (08:31)
[2017-11-03] MEDS: NICOTINE (14 MG/24 HR) PATCH TRANSDERM (08:31)
[2017-11-03] MEDS: BUSPIRONE 5 MG TAB PO ×2 (08:32→12:56)
[2017-11-03] MEDS: METHADONE 10 MG TAB PO (08:32)
[2017-11-03] MEDS: DOCUSATE SODIUM 100 MG CAP PO (08:32)
[2017-11-03] MEDS: NYSTATIN 30 GM POWDER BTL TOP (08:39)
[2017-11-03] MEDS: DOXYCYCLINE 100 MG TAB PO (10:51)
== END 2017-11-03 17:10 | disposition home or self-care (01) | DRG 870 ==
LOC: ICU 09-25 05:38 → PP2 10-08 13:27 → FTE 21:17 → PP2 10-08 14:51 → TEL 09-23 01:49
PROC: 0BH17EZ Insertion of Endotracheal Airway into Trachea, Via Natural or Artificial Opening (ICD-10-PCS; principal; 2017-09-25)
PROC: 5A1955Z Respiratory Ventilation, Greater than 96 Consecutive Hours (ICD-10-PCS; 2017-09-25)
PROC: 02HV33Z Insertion of Infusion Device into Superior Vena Cava, Percutaneous Approach (ICD-10-PCS; 2017-09-25)
PROC: 30233N1 Transfusion of Nonautologous Red Blood Cells into Peripheral Vein, Percutaneous Approach (ICD-10-PCS; 2017-09-30)
PROC: 0W9L3ZZ Drainage of Lower Back, Percutaneous Approach (ICD-10-PCS; 2017-10-01)
DX: A41.02 Sepsis due to Methicillin resistant Staphylococcus aureus (principal); G92 Toxic encephalopathy; J18.9 Pneumonia, unspecified organism; J96.01 Acute respiratory failure with hypoxia; J96.02 Acute respiratory failure with hypercapnia; K68.12 Psoas muscle abscess; E87.2 Acidosis; E87.4 Mixed disorder of acid-base balance; K56.7 Ileus, unspecified; E87.0 Hyperosmolality and hypernatremia; B18.1 Chronic viral hepatitis B without delta-agent; F11.23 Opioid dependence with withdrawal; F15.23 Other stimulant dependence with withdrawal; M60.09 Infective myositis, multiple sites; N17.9 Acute kidney failure, unspecified; B37.0 Candidal stomatitis; R65.20 Severe sepsis without septic shock; E87.6 Hypokalemia; K59.00 Constipation, unspecified; J45.909 Unspecified asthma, uncomplicated; F31.9 Bipolar disorder, unspecified; F41.9 Anxiety disorder, unspecified; F17.210 Nicotine dependence, cigarettes, uncomplicated; B95.62 Methicillin resistant Staphylococcus aureus infection as the cause of diseases classified elsewhere; B19.20 Unspecified viral hepatitis C without hepatic coma; D64.9 Anemia, unspecified; Z59.0 Homelessness
CPT/HCPCS: 31500; 36415; 36430; 36569; 36600; 70360; 70450; 71045; 71275; 72050; 72131; 72148; 72158; 73020-50; 74018; 74178; 76705; 76937; 77012; 80048; 80053; 80061; 80202; 80307; 81001; 81003; 81025; 82140; 82550; 82553; 82570; 82728; 82803; 82945; 82962; 82977; 83036; 83605; 83735; 84100; 84155; 84156; 84165; 84166; 84443; 84484; 85014; 85018; 85025; 85610; 85651; 85730; 86592; 86692; 86703; 86704; 86706; 86803; 86850; 86900; 86901; 86920; 87040; 87070; 87075; 87081; 87086; 87340; 88104; 88305; 89051; 89220; 92526; 92610; 93005; 93306; 93312; 93325; 94002; 94003; 94770; 96365; 96366; 96372; 96375; 96376; 97110; 97116; 97162; 97165; 97530; 97535; 99291-25

== ENCOUNTER 2017-11-17 03:07 | Emergency (ER) | payer OTHER ==
[2017-11-17] MEDS: HYDROmorphONE 1 MG/5 ML IV SYRINGE IV (03:58)
[2017-11-17] MEDS: ONDANSETRON 4 MG INJ IV (03:58)
[2017-11-17 04:18] LABS: URINE BLOOD (Dip) POC Negative (NEGATIVE); URINE GLUCOSE (Dip) POC Negative (NEGATIVE); URINE KETONES (Dip) POC Negative (NEGATIVE); URINE LEUKOCYTE EST (Dip) POC Negative (NEGATIVE); URINE NITRITE (Dip) POC Negative (NEGATIVE); URINE TOTAL PROTEIN POC Negative (NEGATIVE)
[2017-11-17 04:48] LABS: ADD UMIC NO; UR ASCORBIC ACID NEGATIVE (NEGATIVE); UR BACTERIA FEW /HPF (NONE SEEN); UR BILIRUBIN (Dip) NEGATIVE (NEGATIVE); UR BLOOD (Dip) NEGATIVE (NEGATIVE); UR CLARITY SLIGHTLY CLOUDY (CLEAR); UR COLOR STRAW (YELLOW); UR GLUCOSE (Dip) NEGATIVE (NEGATIVE); UR KETONES (Dip) NEGATIVE (NEGATIVE); UR LEUKOCYTE ESTERASE (Dip) NEGATIVE Leu/ul (NEGATIVE); UR NITRITE (Dip) NEGATIVE (NEGATIVE); UR RBC 1 /HPF (0-5); UR SPECIFIC GRAVITY (Dip) 1.006 (1.003-1.030); UR SQUAMOUS EPITHELIAL CELL FEW /HPF (FEW); UR TOTAL PROTEIN (Dip) NEGATIVE (NEGATIVE); UR UROBILINOGEN (Dip) NEGATIVE (NEGATIVE); UR WBC 1 /HPF (0-5)
[2017-11-17 06:09] LABS: ADD MAN DIFF? NO
[2017-11-17 06:30] LABS: BASOPHILS % 0.5 % (0.0-2.0); EOSINOPHILS # 0.2 10^3/ul (0.0-0.5); EOSINOPHILS % 2.6 % (0.0-7.0); HEMATOCRIT 36.2 % (37.0-47.0); HEMOGLOBIN 11.7 g/dl (12.0-16.0); LYMPHOCYTES # 2.7 10^3/ul (0.8-2.9); LYMPHOCYTES % 34.7 % (15.0-51.0); MEAN CORPUSCULAR HEMOGLOBIN 30.3 pg (29.0-33.0); MEAN CORPUSCULAR HGB CONC 32.3 g/dl (32.0-37.0); MEAN CORPUSCULAR VOLUME 93.8 fl (82.0-101.0); MEAN PLATELET VOLUME 8.9 fl (7.4-10.4); MONOCYTE # 0.4 10^3/ul (0.3-0.9); MONOCYTES % 5.5 % (0.0-11.0); NEUTROPHIL # 4.4 10^3/ul (1.6-7.5); NEUTROPHILS % 56.4 % (39.0-77.0); PLATELET COUNT 395 10^3/UL (140-415); RED BLOOD COUNT 3.86 10^6/ul (4.20-5.40); RED CELL DISTRIBUTION WIDTH 15.2 % (11.5-14.5)
[2017-11-17 06:30] LABS: WHITE BLOOD COUNT 7.8 10^3/ul (4.8-10.8)
[2017-11-17 06:31] LABS: INR 1.12; PROTIME 14.6 Sec (11.9-14.9); PT RATIO 1.1
[2017-11-17 06:32] LABS: PARTIAL THROMBOPLASTIN TIME 30.9 Sec (25.0-35.0)
[2017-11-17 06:33] LABS: ALANINE AMINOTRANSFERASE 20 IU/L (13-69); ALBUMIN 3.3 g/dl (3.3-4.9); ALBUMIN/GLOBULIN RATIO 0.76; ALKALINE PHOSPHATASE 113 IU/L (42-121); ANION GAP 14 (8-16); ASPARTATE AMINO TRANSFERASE 17 IU/L (15-46); BILIRUBIN,INDIRECT 0.2 mg/dl (0-1.1); BILIRUBIN,TOTAL 0.2 mg/dl (0.2-1.3); BLOOD UREA NITROGEN 7 mg/dl (7-20); CALCIUM 8.5 mg/dl (8.4-10.2); CARBON DIOXIDE 25 mmol/L (21-31); CHLORIDE 109 mmol/L (97-110); CREATININE 0.47 mg/dl (0.44-1.00); GLUCOSE 112 mg/dl (70-220); POTASSIUM 3.8 mmol/L (3.5-5.1); SODIUM 144 mmol/L (135-144); TOTAL PROTEIN 7.6 g/dl (6.1-8.1)
[2017-11-17 06:34] LABS: LACTIC ACID 1.9 mmol/L (0.5-2.0)
[2017-11-17 06:45] LABS: B-TYPE NATRIURETIC PEPTIDE 607 PG/ML (0-125)
[2017-11-17 06:47] LABS: TROPONIN-I < 0.012 ng/ml (0.00-0.12)
== END 2017-11-17 07:37 | disposition home or self-care (01) ==
LOC: E/R 03:07
DX: M54.5 Low back pain (principal); F11.10 Opioid abuse, uncomplicated; E86.0 Dehydration; F17.210 Nicotine dependence, cigarettes, uncomplicated; J45.909 Unspecified asthma, uncomplicated; R07.9 Chest pain, unspecified
CPT/HCPCS: 71045; 80053; 81001; 81003; 83605; 83880; 84484; 85025; 85610; 85730; 87040; 87086; 93005; 96374; 96375; 99285-25